=== PATIENT | male | born 1940 | race Caucasian/White ===

== ENCOUNTER 2016-07-18 09:23 | Day surgery (SDC) | payer OTHER ==
[2016-07-17 14:58] VITALS: BMI 35.3
[2016-07-18 12:11] VITALS: TEMP 97.5
[2016-07-18 13:40] VITALS: BP 141/78; PULSE 78
--- NOTE | 2016-07-21 11:39 | PATH ---
Surgical Pathology Report Patient Name: PORTIA AMATO [facility]. Rec. #: [id number] /Age/Gender: 1940 (Age: 76) / M Account: [id number] Location: ASU-ENDOSCOPY Taken: 07/18/2016 Received: 07/18/2016 Reported: 07/21/2016 Physicians: Darren Gary M.D. Specimen(s) Received A: BX ASCENDING COLON POLYP B: BX CECUM C: BX LT COLON ANASTOMOSIS Clinical History Colon cancer surveillance AVMs, polyp, patent status post surgical anastomosis, diverticulosis Final Diagnosis A. COLON, ASCENDING, BIOPSY: TUBULAR ADENOMA. B. COLON, CECUM, BIOPSY: COLONIC MUCOSA WITH SUBMUCOSAL ADIPOSE TISSUE CONSISTENT WITH LIPOMA. C. LEFT COLON ANASTOMOSIS, BIOPSY: COLONIC MUCOSA WITH NO PATHOLOGIC CHANGES. Electronically Signed Julian Barrow M.D. Gross Description A. Received in formalin, labeled "biopsy ascending colon polyp" are 2 west, irregular portions of soft tissue measuring 0.1 and 0.3 cm. in greatest dimension. The specimens are submitted in toto in one cassette. B. Received in formalin, labeled "biopsy cecum" are 2 west, irregular portions of soft tissue averaging 0.2 cm. in greatest dimension. The specimens are submitted in toto in one cassette. C. Received in formalin, labeled "biopsy left colon anastomosis" are 3 west, irregular portions of soft tissue averaging 0.4 cm. in greatest dimension. The specimens are submitted in toto in one cassette. 07/18/2016 saudi07/18/2016
== END 2016-07-18 13:41 | disposition home or self-care (01) ==
LOC: JASU-ENDO 09:23
PROVIDERS: ATTEND Internal Medicine Gastroenterology
PROC: 0DBC8ZX Excision of Ileocecal Valve, Via Natural or Artificial Opening Endoscopic, Diagnostic (ICD-10-PCS; 2016-07-18)
PROC: 0DBH8ZX Excision of Cecum, Via Natural or Artificial Opening Endoscopic, Diagnostic (ICD-10-PCS; 2016-07-18)
PROC: 0DBK8ZX Excision of Ascending Colon, Via Natural or Artificial Opening Endoscopic, Diagnostic (ICD-10-PCS; principal; 2016-07-18 10:30)
DX: Z12.11 Encounter for screening for malignant neoplasm of colon (principal); Z85.038 Personal history of other malignant neoplasm of large intestine; K57.30 Diverticulosis of large intestine without perforation or abscess without bleeding; K64.8 Other hemorrhoids; Z98.0 Intestinal bypass and anastomosis status; D12.2 Benign neoplasm of ascending colon; D12.0 Benign neoplasm of cecum; K63.5 Polyp of colon
CPT/HCPCS: 88305-TC

== ENCOUNTER 2017-07-13 06:23 | Day surgery (SDC) | payer OTHER | END 2017-07-13 16:45 | disposition home or self-care (01) | LOC: JASU-SURG 06:23 | PROC: 0TCB8ZZ Extirpation of Matter from Bladder, Via Natural or Artificial Opening Endoscopic (ICD-10-PCS; principal; 2017-07-13) | CPT/HCPCS: 36415; 82360; 82962; 88300-TC; 94760 ==

== ENCOUNTER 2017-08-10 07:05 | Day surgery (SDC) | payer OTHER ==
[2017-08-06 13:52] VITALS: BMI 31.1
[2017-08-10] MEDS ORDERED: LIDOCAINE HCL 2% JELLY 10 ML CARTRIDGE ONE (09:50)
[2017-08-10] MEDS ORDERED: MIDAZOLAM HCL 2 MG/2 ML SINGLE DOSE VIAL ONE (09:52)
[2017-08-10] MEDS ORDERED: PROPOFOL 20 ML ONE (09:52)
[2017-08-10] MEDS ORDERED: ePHEDrine SULFATE 50 MG/1 ML AMPULE ONE (10:28)
[2017-08-10] MEDS ORDERED: DEXAMETHASONE SOD PHOSPHATE 4 MG/1 ML VIAL ONE (10:50)
[2017-08-10] MEDS ORDERED: LIDOCAINE HCL 2% JELLY 10 ML CARTRIDGE TP ONE (10:50)
[2017-08-10] MEDS ORDERED: ONDANSETRON 4 MG/2 ML VIAL IVPUSH PRN (11:10)
[2017-08-10] MEDS ORDERED: ACETAMINOPHEN 1000 MG/100 ML VIAL (NON FORMULARY) IVPB ONE (11:10)
[2017-08-10] MEDS ORDERED: LACTATED RINGERS SOLUTION 1,000 ML IV SCH (11:15)
--- NOTE | 2017-08-10 12:30 | OP ---
Operative Note - Note: Operative Date: 08/10/17 Pre-Operative Diagnosis: gross hematuria, chronic renal insufficiency,bph Operation: cystoscopy/bilateral retrograde pyelogram/right ureteroscopy Findings: mild right hydronephrosis with severe medial deviation of right ureter Post-Operative Diagnosis: Other (medial deviation of right ureter with mild right hydronephrosis) Surgeon: Anjel Khan Anesthesia: General
[2017-08-10 16:31] VITALS: BP 145/77; PULSE 66; TEMP 98.3
--- NOTE | 2017-08-10 19:49 | OP ---
DATE OF OPERATION: 08/10/2017 PREOPERATIVE DIAGNOSIS: Gross hematuria, chronic renal insufficiency, and benign prostatic hypertrophy. POSTOPERATIVE DIAGNOSIS: Mild right hydronephrosis with severe medial deviation of right ureter. ATTENDING SURGEON: Marine Khan M.D. ANESTHESIA: General. PROCEDURE: Cystoscopy, bilateral retrograde pyelogram, and right ureteroscopy. DESCRIPTION OF PROCEDURE: The patient was brought in the operating room, placed in supine position on operating table. The patient has history of gross hematuria and chronic renal insufficiency and could not have an IV contrast enhanced CAT scan performed. The patient is status post lithotripsy of bladder stones. Patient is currently on Flomax for benign prostatic hypertrophy. The patient is brought into the operating room in order to assess his kidneys with a contrast study involving his ureters and renal pelvises. The patient understands all risks and benefits. The patient is brought in the operating room and placed in supine position on the operating room table. General anesthesia and preoperative antibiotics are administered. At this point, the patient is placed in a dorsal lithotomy position and prepped and draped in the usual sterile manner. Cystoscopy was performed, and a 3+ obstructive prostate is noted. 3+ bladder trabeculation with multiple and diverticula are noted. There is difficulty in identifying the ureteral orifices. With moderate difficulty, the left ureteral orifice was identified. There was J-hooking of the ureters on both sides. The left ureteral orifice was able to be intubated, and the open-ended catheter passed proximally. A retrograde pyelogram showed no evidence of hydroureteronephrosis or masses. Attempts at passing the open ended catheter into the right side were unsuccessful. Ureteroscopy was performed, and a wire was passed proximally. There was severe J-hooking of the right side, more so than on the left side. A wire was passed, and an open-ended catheter was then placed over the wire. A retrograde pyelogram showed severe medial deviation of the ureter going into, pushing into the area overlying the spine. There was continued deviation of the ureter until 4 cm below the ureteropelvic junction. There was a mild hydroureteronephrosis. There was adequate emptying of the collecting system. It was decided not to leave the stent in the patient. The case will be discussed with radiology in order to assess how to further follow up the mass effect that was causing the deviation of the ureter medially. Patient tolerated procedure very well. No complications were noted. There were also no masses noted on the distal ureteroscopy. DISPOSITION: The patient was to recovery room. MARINE ZEPEDA M.D. [id number]
[2017-09-03] MEDS ORDERED: CASPOFUNGIN ACETATE 70 MG in SODIUM CHLORIDE 250 ML IVPB ONE (13:00)
[2017-09-03] MEDS ORDERED: PIPERACILLIN/TAZOB 2.25 GM 2.25 GM in DEXTROSE 5%-WATER - 50 ML IVPB SCH (22:00)
[2017-09-04] MEDS ORDERED: CASPOFUNGIN ACETATE 50 MG in SODIUM CHLORIDE 250 ML IVPB SCH (10:15)
== END 2017-08-10 16:31 | disposition home or self-care (01) ==
LOC: JASU-SURG 07:05
PROVIDERS: ATTEND Urology
PROC: BT1DYZZ Fluoroscopy of Right Kidney, Ureter and Bladder using Other Contrast (ICD-10-PCS; principal; 2017-08-10 09:00)
PROC: 0TJ98ZZ Inspection of Ureter, Via Natural or Artificial Opening Endoscopic (ICD-10-PCS; 2017-08-10 09:00)
DX: I12.9 Hypertensive chronic kidney disease with stage 1 through stage 4 chronic kidney disease, or unspecified chronic kidney disease (principal); N40.0 Benign prostatic hyperplasia without lower urinary tract symptoms; N18.9 Chronic kidney disease, unspecified; N13.30 Unspecified hydronephrosis; Q62.61 Deviation of ureter; E11.22 Type 2 diabetes mellitus with diabetic chronic kidney disease; Z79.84 Long term (current) use of oral hypoglycemic drugs
CPT/HCPCS: 76000-TC-FY; 82962; 87086; 94760; J0131

== ENCOUNTER 2018-04-02 18:08 | Inpatient (IN) | payer OTHER ==
--- NOTE | 2018-04-02 18:14 | PDOC ---
Rapid Medical Evaluation Time Seen by Provider: 04/02/18 18:10 Medical Evaluation: Allergies Allergy/AdvReac Type Severity Reaction Status Date / Time No Known Allergies Allergy Verified 08/10/17 08:14 04/02/18 18:11 Pt c/o: urinary freq, recent multi- drug resistant urine, last abx in december, sent by Dr. Adrian for eval Pt on brief exam: VSS, Pt ordered for: ua, ucx, cbc, comp, iv pt to proceed to the ED Discharge Disposition - Diagnosis Dysuria - Referrals Referrals: Aspen Adrian MD [Primary Care Provider] - - Patient Instructions - Post Discharge Activity
--- NOTE | 2018-04-02 19:31 | PDOC ---
History of Present Illness - General Chief Complaint: Pain Stated Complaint: SENT PAIN Time Seen by Provider: 04/02/18 18:10 - History of Present Illness Initial Comments: 04/02/18 20:10 The patient is a 77 year old male with a history of HTN, HLD, DM, Diverticulosis , Kidney Stones, who presents for evaluation of dysuria. The patient is accompanied by family who assist in providing the history. They note that the patient has been experiencing worsening burning with urination with associated increased urinary frequency over the past 1-2 weeks. The patient notes that he has been urinating every 30 minutes. He states that his primary care provider Dr. Adrian obtained urine which was positive for a multi-drug resistant UTI prompting his presentation to the ED for further evaluation. The patient otherwise denies fevers, chills, SOB, chest pain, back pain, nausea, vomiting, abdominal pain, or changes with bowel movements. Past History - Past Medical History Allergies/Adverse Reactions: Allergies Allergy/AdvReac Type Severity Reaction Status Date / Time No Known Allergies Allergy Verified 04/02/18 18:12 Home Medications: Ambulatory Orders Allopurinol [Zyloprim -] 100 mg PO DAILY 07/06/14 Multivitamins [Multivit ([facility] Formulary)] 1 tab PO DAILY 07/06/14 Vitamin B Complex [B Complex] 1 each PO DAILY 07/06/14 Atorvastatin Ca [Lipitor] 10 mg PO HS 07/10/17 Tamsulosin HCl 0.8 mg PO DAILY 07/10/17 Lactobacillus Acidophilus [Bacid -] 1 tab PO DAILY tab 09/08/17 Sitagliptin Phosphate [Januvia -] 25 mg PO DAILY@0700 tab 09/08/17 Aspirin 81 mg PO DAILY 04/02/18 Cholecalciferol (Vitamin D3) [Vitamin D3 -] 1,000 unit PO DAILY 04/02/18 Anemia: No Asthma: No 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) Cardiac Disorders: No CVA: No COPD: No CHF: No Dementia: No Diabetes: Yes (NIDDM) GI Disorders: Yes (DIVERTICULOSIS, COLON POLYPS) Disorders: Yes (KIDNEY STONES) HTN: Yes Hypercholesterolemia: Yes (pt denies) Liver Disease: Yes (NAFLD-pt denies) Seizures: No Thyroid Disease: No - Surgical History Abdominal Surgery: Yes (LEFT HEMICOLECTOMY W/TEMP LOOP ILEOSTOMY 2011) Appendectomy: No Cardiac Surgery: (BILAT IRIDECTOMIES) Cholecystectomy: No Lung Surgery: No Neurologic Surgery: No Orthopedic Surgery: No - Immunization History Td Vaccination: No TDAP Vaccination: No Immunization Up to Date: No - Suicide/Smoking/Psychosocial Hx Smoking Status: No Smoking History: Unknown if ever smoked Have you smoked in the past 12 months: No Number of Cigarettes Smoked Daily: 0 If you are a former smoker, when did you quit?: About 50 years ago Hx Alcohol Use: No (RARELY) Drug/Substance Use Hx: No Substance Use Type: Alcohol Hx Substance Use Treatment: No Review of Systems - Review of Systems Comments:: 04/02/18 20:13 Constitutional: No fevers, chills, fatigue, malaise HEENT: No Rhinorrhea, nasal congestion, visual changes Cardiovascular: No chest pain, syncope, palpitations, lightheadedness Respiratory: No Cough, SOB, Hemoptysis, Gastrointestinal: No Abdominal pain, Nausea, Vomiting, Constipation, Diarrhea, Melena Genitourinary: Dysuria, Increased Frequency, Increased Urgency, No Hesitancy, Hematuria, Flank pain Musculoskeletal: No Myalgia, arthralgia Skin: No rashes, itching, bruising, pallor Neurologic: No Headache, Dizziness, Numbness, Weakness, or Tingling Psychiatric: No Hallucinations. No SI or HI *Physical Exam - Vital Signs Last Vital Signs Temp Pulse Resp BP Pulse Ox 98.3 F 98 H 18 117/67 99 04/02/18 18:19 04/02/18 18:19 04/02/18 18:19 04/02/18 18:19 04/02/18 18:19 - Physical Exam Comments: 04/02/18 20:14 General Appearance: Nourished. No Apparent Distress HEENT: No Pharyngeal Erythema, Tonsillar Exudate, Tonsillar Erythema Neck: No Cervical Lymphadenopathy Respiratory/Chest: Lungs Clear, Normal Breath Sounds. No Crackles, Rales, Rhonchi, Wheezing Cardiovascular: Regular Rhythm, Regular Rate. No Murmur, Gallops, Rubs Gastrointestinal/Abdominal: Normal Bowel Sounds, Soft. No Guarding, Rebound, Tenderness Musculoskeletal: No CVA Tenderness Extremity: Normal Capillary Refill Integumentary: Normal Color, Dry, Warm Neurologic: Fully Oriented, Alert, Normal Mood/Affect, Normal Response, Moderate Sedation - Procedure Monitoring Vital Signs: Procedure Monitoring Vital Signs Temperature 98.3 F 04/02/18 18:19 Pulse Rate 98 H 04/02/18 18:19 Respiratory Rate 18 04/02/18 18:19 Blood Pressure 117/67 04/02/18 18:19 O2 Sat by Pulse Oximetry (%) 99 04/02/18 18:19 ED Treatment Course - LABORATORY CBC & Chemistry Diagram: 04/02/18 19:53 04/02/18 19:53 Medical Decision Making - Medical Decision Making 04/02/18 20:14 The patient is a 77 year old male with a history of HTN, HLD, DM, Diverticulosis , Kidney Stones, who presents for evaluation of dysuria. Given the patient's history and physical exam, it is likely the patient's symptoms are due to a UTI. However, we will obtain a cbc, cmp, ua, urine culture, ekg to evaluate further. We will continue to monitor and reassess while here in the ED. 04/02/18 21:38 CBC, cmp are unchanged. UA demonstrate positive leuk esterase with 6000s WBC consistent with a UTI. The patient will require admission for further management. We attempted to obtain culture results from the patient's primary care provider's office, however the office is closed and unable to send culture results at this time. We discussed the case with the hospitalist team who accepted the patient for admission. We will treat in the meantime with ceftriaxone. *DC/Admit/Observation/Transfer Diagnosis at time of Disposition: Dysuria UTI (urinary tract infection) Qualifiers: Urinary tract infection type: site unspecified Hematuria presence: without hematuria Qualified Code(s): N39.0 - Urinary tract infection, site not specified - Discharge Dispostion Condition at time of disposition: Stable Decision to Admit order: Yes - Referrals Referrals: Aspen Adrian MD [Primary Care Provider] - - Patient Instructions - Post Discharge Activity
--- NOTE | 2018-04-02 19:50 | PDOC ---
Attending Attestation - HPI HPI: 04/02/18 19:55 The patient is a 77 year old male, with a significant PMH of hypertension, hyperlipidemia, DM, diverticulosis, kidney stones, who presents to the emergency department with 1 week of worsening dysuria and urinary frequency. The patient states he has been urinating once every half hour and endorses worsening pain upon urination The patient denies any hematuria. Denies any recent flank pain. Denies any recent fevers or chills. The patient denies chest pain, shortness of breath, headache and dizziness. Denies fever, chills, nausea, vomit, diarrhea and constipation. Allergies: NKA PCP: Dr Adrian Documentation prepared by Jarrell Foster, acting as clinical medical assistant for Angela Rondon MD. - Physicial Exam PE: 04/02/18 20:17 GENERAL: Awake, alert, and fully oriented, in no acute distress HEAD: No signs of trauma EYES: PERRLA, EOMI, sclera anicteric, conjunctiva clear ENT: Auricles normal inspection, hearing grossly normal, nares patent, oropharynx clear without exudates. Moist mucosa NECK: Normal ROM, supple, no lymphadenopathy, JVD, or masses LUNGS: Breath sounds equal, clear to auscultation bilaterally. No wheezes, and no crackles HEART: Regular rate and rhythm, normal S1 and S2, no murmurs, rubs or gallops ABDOMEN: Soft, nontender, normoactive bowel sounds. No guarding, no rebound. No masses EXTREMITIES: Normal range of motion, no edema. No clubbing or cyanosis. No cords, erythema, or tenderness NEUROLOGICAL: Cranial nerves II through XII grossly intact. Normal speech. SKIN: Warm, Dry, normal turgor, no rashes or lesions noted. <Jarrell Foster - Last Filed: 04/02/18 20:17> - Resident Resident Name: Carl Villafuerte - ED Attending Attestation I have performed the following: I have examined & evaluated the patient, The case was reviewed & discussed with the resident, I agree w/resident's findings & plan - Medical Decision Making 04/04/18 06:00 Pt was sent by his PMD for worsening UTI/prostatitis/dysuria. He will be admitted for IV abx and for urology consults. <Angela Rondon - Last Filed: 04/04/18 06:01>
[2018-04-02 20:13] LABS: BASO % 0.6 % (0-2.0); EOS % 3.3 % (0-4.5); HEMATOCRIT 33.7 % (35.4-49); HEMOGLOBIN 11.7 GM/dL (11.7-16.9); LYMPH % 22.1 % (8-40); MCH 31.3 pg (25.7-33.7); MCHC 34.8 g/dl (32.0-35.9); MEAN CELL VOLUME 89.9 fl (80-96); MEAN PLT VOLUME 7.3 fl (7.5-11.1); MONO % 9.2 % (3.8-10.2); NEUT % 64.8 % (42.8-82.8); PLATELET COUNT 231 K/MM3 (134-434); RBC 3.75 M/mm3 (4.00-5.60); WHITE BLOOD COUNT 6.6 K/mm3 (4.0-10.0)
[2018-04-02 20:26] LABS: URINE APPEARANCE TURBID; URINE BILIRUBIN NEGATIVE (<2.0 mg/dL); URINE COLOR YELLOW; URINE GLUCOSE (UA) 3+ (NEGATIVE); URINE KETONE NEGATIVE (NEGATIVE); URINE LEUK ESTERASE 2+ (NEGATIVE); URINE NITRITE NEGATIVE (NEGATIVE); URINE PROTEIN 2+ (NEGATIVE); URINE UROBILINOGEN NEGATIVE mg/dL (0.2-1.0)
[2018-04-02 20:37] LABS: ALBUMIN 3.3 g/dl (3.4-5.0); ALK PHOS 106 U/L (45-117); ANION GAP 5 MMOL/L (8-16); BILIRUBIN,TOTAL 0.6 mg/dL (0.2-1); BLOOD UREA NITROGEN 28 mg/dL (7-18); CALCIUM 8.4 mg/dL (8.5-10.1); CHLORIDE 107 mmol/L (98-107); CO2 26 mmol/L (21-32); GLUCOSE,RANDOM 273 mg/dL (74-106); POTASSIUM 4.4 mmol/L (3.5-5.1); SGOT/AST 16 U/L (15-37); SGPT/ALT 27 U/L (13-61); SODIUM 138 mmol/L (136-145); TOT PROT 7.2 g/dl (6.4-8.2)
[2018-04-02] MEDS ORDERED: CEFTRIAXONE 1 GM in DEXTROSE 5%-WATER - 100 ML IVPB ONE (20:38)
[2018-04-02] MEDS ORDERED: SODIUM CHLORIDE 500 ML IV STA (20:57)
[2018-04-02] MEDS ORDERED: CEFTRIAXONE 1 GM/50 ML BAG ONE (21:13)
--- NOTE | 2018-04-02 21:23 | HP ---
CHIEF COMPLAINT: dysuria PCP: Kaylah HISTORY OF PRESENT ILLNESS: History is severely limited as patient is deaf and does not have hearing aids with him 77 year old male c/o dysuria, frequency, for about the past week. No shaking or chills. He was seen in Dr. Adrian's office on 04/02/18 and was noted to have grown MDR organism in urine culture. Unknown what organism and drug sensitivities. He was sent to ER for further management. Uncertain why on allopurinol- will confirm in AM with PCP. ER course was notable for: (1) urine culture (2) ceftriaxone (3) Recent Travel: none PAST MEDICAL HISTORY: hypertension, hyperlipidemia, DM, diverticulosis, kidney stones, PAST SURGICAL HISTORY: kidney stone removal Social History: Smoking: no Alcohol: no Drugs: no Family History: Allergies No Known Allergies Allergy (Verified 04/02/18 18:12) HOME MEDICATIONS: Home Medications Medication Instructions Recorded Allopurinol [Zyloprim -] 100 mg PO DAILY 07/06/14 Multivitamins [Multivit ([facility] 1 tab PO DAILY 07/06/14 Formulary)] Vitamin B Complex [B Complex] 1 each PO DAILY 07/06/14 Atorvastatin Ca [Lipitor] 10 mg PO HS 07/10/17 Tamsulosin HCl 0.8 mg PO DAILY 07/10/17 Lactobacillus Acidophilus [Bacid -] 1 tab PO DAILY tab 09/08/17 Sitagliptin Phosphate [Januvia -] 25 mg PO DAILY@0700 tab 09/08/17 Aspirin 81 mg PO DAILY 04/02/18 Cholecalciferol (Vitamin D3) 1,000 unit PO DAILY 04/02/18 [Vitamin D3 -] REVIEW OF SYSTEMS CONSTITUTIONAL: Absent: fever, chills, diaphoresis, generalized weakness, malaise, loss of appetite, weight change HEENT: Absent: rhinorrhea, nasal congestion, throat pain, throat swelling, difficulty swallowing, mouth swelling, ear pain, eye pain, visual changes CARDIOVASCULAR: Absent: chest pain, syncope, palpitations, irregular heart rate, lightheadedness , peripheral edema RESPIRATORY: Absent: cough, shortness of breath, dyspnea with exertion, orthopnea, wheezing, stridor, hemoptysis GASTROINTESTINAL: Absent: abdominal pain, abdominal distension, nausea, vomiting, diarrhea, constipation, melena, hematochezia GENITOURINARY: Absent: hesitancy, hematuria, flank pain, genital pain present- dysuria, frequency, urgency, MUSCULOSKELETAL: Absent: myalgia, arthralgia, joint swelling, back pain, neck pain SKIN: Absent: rash, itching, pallor HEMATOLOGIC/IMMUNOLOGIC: Absent: easy bleeding, easy bruising, lymphadenopathy, frequent infections ENDOCRINE: Absent: unexplained weight gain, unexplained weight loss, heat intolerance, cold intolerance NEUROLOGIC: Absent: headache, focal weakness or paresthesias, dizziness, unsteady gait, seizure, mental status changes, bladder or bowel incontinence PSYCHIATRIC: Absent: anxiety, depression, suicidal or homicidal ideation, hallucinations. PHYSICAL EXAMINATION Vital Signs - 24 hr 04/02/18 18:19 Temperature 98.3 F Pulse Rate 98 H Respiratory 18 Rate Blood Pressure 117/67 O2 Sat by Pulse 99 Oximetry (%) GENERAL: Awake, alert, and fully oriented, in no acute distress. HEAD: Normal with no signs of trauma. EYES: Pupils equal, round and reactive to light, extraocular movements intact, sclera anicteric, conjunctiva clear. No lid lag. EARS, NOSE, THROAT: Ears normal, nares patent, oropharynx clear without exudates. Moist mucous membranes. NECK: Normal range of motion, supple without lymphadenopathy, JVD, or masses. LUNGS: Breath sounds equal, clear to auscultation bilaterally. No wheezes, and no crackles. No accessory muscle use. HEART: Regular rate and rhythm, normal S1 and S2 without murmur, rub or gallop. ABDOMEN: +ventral hernia, no CVA tenderness MUSCULOSKELETAL: Normal range of motion at all joints. No bony deformities or tenderness. No CVA tenderness. UPPER EXTREMITIES: 2+ pulses, warm, well-perfused. No cyanosis. No clubbing. No peripheral edema. LOWER EXTREMITIES: 2+ pulses, warm, well-perfused. No calf tenderness. No peripheral edema. NEUROLOGICAL: Cranial nerves II-XII intact. Normal speech. Normal gait. PSYCHIATRIC: Cooperative. Good eye contact. Appropriate mood and affect. SKIN: Warm, dry, normal turgor, no rashes or lesions noted, normal capillary refill. Laboratory Results - last 24 hr 04/02/18 04/02/18 04/02/18 19:53 19:53 19:53 WBC 6.6 RBC 3.75 L Hgb 11.7 Hct 33.7 L D MCV 89.9 MCH 31.3 MCHC 34.8 RDW 15.0 Plt Count 231 D MPV 7.3 L Absolute Neuts (auto) 4.3 Neutrophils % 64.8 Lymphocytes % 22.1 D Monocytes % 9.2 Eosinophils % 3.3 D Basophils % 0.6 Nucleated RBC % 0 Sodium 138 Potassium 4.4 Chloride 107 Carbon Dioxide 26 Anion Gap 5 L BUN 28 H Creatinine 2.0 H Creat Clearance w eGFR 32.48 Random Glucose 273 H Calcium 8.4 L Total Bilirubin 0.6 AST 16 ALT 27 Alkaline Phosphatase 106 Total Protein 7.2 Albumin 3.3 L Urine Color Yellow Urine Appearance Turbid Urine pH 5.0 Ur Specific [place] 1.011 Urine Protein 2+ H Urine Glucose (UA) 3+ H Urine Ketones Negative Urine Blood 1+ H Urine Nitrite Negative Urine Bilirubin Negative Urine Urobilinogen Negative Ur Leukocyte Esterase 2+ H Urine WBC (Auto) 6495 Urine RBC (Auto) 31 ASSESSMENT/PLAN: #77yo man with UTI with possible prostatitis with reported MDR organism however report is not available at this time. -obtain urine culture data, drug sensitivities from PCP in am -urine culture here -ceftriaxone 1g IV q24hrs -ID consult -will adjust antibiotics according to outpatient urine culture report #CKD vs JOHANNA -i/o -daily weights -trend Cr, BUN -avoid nephrotoxins -renal, prostate U/S #BPH? -c/w tamsulosin home dose #DM - uncontrolled -a1c -novolog sliding scale -diabetic diet #DLP -c/w atorvastatin #DVT ppx -heparin sc Visit type - Emergency Visit Emergency Visit: Yes ED Registration Date: 04/02/18 Care time: The patient presented to the Emergency Department on the above date and was hospitalized for further evaluation of their emergent condition. - New Patient This patient is new to me today: Yes Date on this admission: 04/03/18 - Critical Care Critical Care patient: No
[2018-04-02] MEDS: SODIUM CHLORIDE 1,000 ML IV SCH (21:49)
[2018-04-02] MEDS: HEPARIN NA (PORCINE) 5,000 UNITS/ML 1ML VIAL SQ SCH (22:35)
[2018-04-03] MEDS ORDERED: ATORVASTATIN CA 10 MG TABLET (FP) ONE (01:13)
[2018-04-03] MEDS ORDERED: HEPARIN NA (PORCINE) 5,000 UNITS/ML 1ML VIAL ONE (01:13)
[2018-04-03] MEDS: ATORVASTATIN CA 10 MG TABLET (FP) PO SCH ×2 (01:32→21:22)
[2018-04-03] MEDS: INSULIN SLIDING SCALE (NOVOLOG) 1 VIAL SQ SCH ×6 (01:32→21:21)
[2018-04-03 07:19] LABS: BASO % 0.5 % (0-2.0); EOS % 3.5 % (0-4.5); HEMATOCRIT 32.8 % (35.4-49); HEMOGLOBIN 10.6 GM/dL (11.7-16.9); LYMPH % 25.2 % (8-40); MCH 29.4 pg (25.7-33.7); MCHC 32.4 g/dl (32.0-35.9); MEAN CELL VOLUME 90.8 fl (80-96); MEAN PLT VOLUME 7.5 fl (7.5-11.1); MONO % 9.3 % (3.8-10.2); NEUT % 61.5 % (42.8-82.8); PLATELET COUNT 194 K/MM3 (134-434); RBC 3.61 M/mm3 (4.00-5.60); RDW 15.1 % (11.9-15.9); WHITE BLOOD COUNT 6.2 K/mm3 (4.0-10.0)
[2018-04-03 07:44] LABS: ANION GAP 6 MMOL/L (8-16); BLOOD UREA NITROGEN 23 mg/dL (7-18); CALCIUM 8.4 mg/dL (8.5-10.1); CHLORIDE 109 mmol/L (98-107); CO2 23 mmol/L (21-32); CREATININE 1.6 mg/dL (0.55-1.3); GLUCOSE,RANDOM 167 mg/dL (74-106); POTASSIUM 4.1 mmol/L (3.5-5.1); SODIUM 138 mmol/L (136-145)
--- NOTE | 2018-04-03 08:38 | EKG ---
Test Reason : Blood Pressure : / mmHG Vent. Rate : 090 BPM Atrial Rate : 090 BPM P-R Int : 162 ms QRS Dur : 140 ms QT Int : 398 ms P-R-T Axes : 030 -54 -17 degrees QTc Int : 486 ms NORMAL SINUS RHYTHM RIGHT BUNDLE BRANCH BLOCK LEFT ANTERIOR FASCICULAR BLOCK BIFASCICULAR BLOCK ABNORMAL ECG WHEN COMPARED WITH ECG OF 04-SEP-2017 12:24, SIGNIFICANT CHANGES HAVE OCCURRED Confirmed by LEONILA WHITE MD ([id number]) on 04/03/2018 8:37:42 AM Referred By: Confirmed By:LEONILA WHITE MD
[2018-04-03] MEDS: TAMSULOSIN HCL 0.4 MG CAP PO SCH (10:27)
[2018-04-03] MEDS: ASPIRIN 81 MG CHEWABLE TABLETS PO SCH (10:28)
[2018-04-03] MEDS: MULTIVITAMINS (DAILY MVI) TABLET (FP) PO SCH (10:28)
[2018-04-03] MEDS: CHOLECALCIFEROL (VITAMIN D3) 400 UNIT TABLET (FP) PO SCH (10:28)
[2018-04-03] MEDS: LACTOBACILLUS ACIDOPHILUS 1 TABLET PO SCH (10:28)
[2018-04-03] MEDS: ALLOPURINOL 100 MG TABLET (FP) PO SCH (10:29)
[2018-04-03] MEDS: HEPARIN NA (PORCINE) 5,000 UNITS/ML 1ML VIAL SQ SCH ×2 (10:30→21:22)
--- NOTE | 2018-04-03 13:08 | PN ---
Progress Note, Physician - Current Medication List Current Medications: Active Medications Allopurinol (Zyloprim -) 100 mg PO DAILY [facility] Last Admin: 04/03/18 10:29 Dose: 100 mg Aspirin (Asa -) 81 mg PO DAILY [facility] Last Admin: 04/03/18 10:28 Dose: 81 mg Atorvastatin Calcium (Lipitor -) 10 mg PO HS [facility] Last Admin: 04/03/18 01:32 Dose: 10 mg Cholecalciferol (Vitamin D3 -) 1,000 unit PO DAILY [facility] Last Admin: 04/03/18 10:28 Dose: 1,000 unit Heparin Sodium (Porcine) (Heparin -) 5,000 unit SQ BID [facility] Last Admin: 04/03/18 10:30 Dose: 5,000 unit Sodium Chloride (Normal Saline -) 1,000 mls @ 50 mls/hr IV ASDIR [facility] Stop: 04/03/18 21:33 Last Admin: 04/02/18 21:49 Dose: 50 mls/hr Insulin Aspart (Novolog Vial Sliding Scale -) 1 vial SQ ACHS [facility]; Protocol Lactobacillus Acidophilus (Bacid -) 1 tab PO DAILY [facility] Last Admin: 04/03/18 10:28 Dose: 1 tab Multivitamins/Minerals/Vitamin C (Tab-A-Vit -) 1 tab PO DAILY [facility] Last Admin: 04/03/18 10:28 Dose: 1 tab Tamsulosin HCl (Flomax -) 0.8 mg PO DAILY@0830 [facility] Last Admin: 04/03/18 10:27 Dose: 0.8 mg - Objective Vital Signs: Vital Signs Temperature 98.4 F 04/03/18 10:10 Pulse Rate 89 04/03/18 10:10 Respiratory Rate 18 04/03/18 10:10 Blood Pressure 123/73 04/03/18 10:10 O2 Sat by Pulse Oximetry (%) 98 04/03/18 10:10 Cardiovascular: Yes: Regular Rate and Rhythm Respiratory: Yes: Regular, CTA Bilaterally Gastrointestinal: Yes: Normal Bowel Sounds, Soft, Other (abd wall hernia) Labs: CBC, BMP 04/03/18 07:09 04/03/18 07:09 Problem List - Problems (1) UTI (urinary tract infection) Assessment/Plan: -office ua positive blood and wbc-bact--uc mutiple organisms -obtain-urine culture here -ceftriaxone 1g IV q24hrs -ID consult -will adjust antibiotics according to outpatient urine culture report Code(s): N39.0 - URINARY TRACT INFECTION, SITE NOT SPECIFIED Qualifiers: Urinary tract infection type: site unspecified Hematuria presence: without hematuria Qualified Code(s): N39.0 - Urinary tract infection, site not specified (2) CKD (chronic kidney disease) Assessment/Plan: -i/o -daily weights -trend Cr, BUN -avoid nephrotoxins -renal, prostate U/S -Renal consult Code(s): N18.9 - CHRONIC KIDNEY DISEASE, UNSPECIFIED (3) Anemia Assessment/Plan: -Monitor Code(s): D64.9 - ANEMIA, UNSPECIFIED (4) BPH (benign prostatic hyperplasia) Assessment/Plan: -Urology Consult -c/w tamsulosin home dose Code(s): N40.0 - BENIGN PROSTATIC HYPERPLASIA WITHOUT LOWER URINRY TRACT SYMP
--- NOTE | 2018-04-03 15:07 | PN ---
Progress Note (short form) - Note Progress Note: ID consult dictated imp/reccd 77 yo man with pmh renal stones, history of sepsis and acute renal failure 2017 now reports intermittent dysuria and urinary retention since sees dr Sweet for urology and had recent CT scan-cystitis and bph sent to ED for recurrent UTI no fevers or chills, no flank pain, otherwise feels well unsure whether he has been on antibiotics recently ua with pyuria, cultures are pending awaiting urology evaluation can continue ceftriaxone for now, will follow d/w daughter, , and patient Problem List - Problems (1) UTI (urinary tract infection) Code(s): N39.0 - URINARY TRACT INFECTION, SITE NOT SPECIFIED Qualifiers: Urinary tract infection type: site unspecified Hematuria presence: without hematuria Qualified Code(s): N39.0 - Urinary tract infection, site not specified (2) Urinary retention Code(s): R33.9 - RETENTION OF URINE, UNSPECIFIED
[2018-04-03] MEDS ORDERED: cefTRIAXone SODIUM 1 GM VIAL ONE (15:46)
[2018-04-03] MEDS ORDERED: DEXTROSE 5%-WATER - 50 ML IVPB ONE (15:46)
[2018-04-03] MEDS: CEFTRIAXONE 1 GM in DEXTROSE 5%-WATER - 50 ML IVPB SCH (17:13)
--- NOTE | 2018-04-03 19:04 | CONS ---
DATE OF CONSULTATION: DATE OF DICTATION: 04/03/2018 REQUESTING PHYSICIAN: Aspen Adrian MD HISTORY: This is a 77-year-old man who had a stormy admission in August of this year when he was admitted for sepsis. He was in acute renal failure and had recently had a procedure at that time. After discharge from the hospital, the family reports that he continued to have urinary symptoms. He has continued to have difficulty urinating. He feels like his entire bladder will not empty. He has to push the urine out. He needs to urinate every 1/2 hour. He has had no further fever or chills. He has, otherwise, been stable. He is now seeing Dr. Ella Sweet as an outpatient. He reports having had a CAT scan recently. He was sent from home apparently because he had a urine culture with multidrug-resistant organisms, and he was sent to the emergency room. PAST MEDICAL HISTORY: Notable for hypertension, hyperlipidemia, diabetes, diverticulosis, and kidney stones. PAST SURGICAL HISTORY: He has had kidney stones removed. As well he had colon cancer in the past and underwent colon resection. He has also had cystoscopy in the past for BPH and bladder stones. He has had retrograde pyelograms in the past. ALLERGIES: He has no known drug allergies. MEDICATIONS: He is unsure if he has recently been on antibiotics. Both his and daughter are present. They are not sure as well. His medications at home include B complex, tamsulosin, Januvia, multivitamin, Bacid, vitamin D, atorvastatin, aspirin, allopurinol. SOCIAL HISTORY: He is . He lives at home with his family. There is no history of any cigarette or substance use. He is hard of hearing. REVIEW OF SYSTEMS: He denies fever or chills. He has no diarrhea or dysuria. His main complaints are related to his frequent urination. At night he states he is often incontinent. PHYSICAL EXAMINATION: General: He is awake and alert. Vital Signs: Temperature 97.3, pulse 88, blood pressure 138/70, respiratory rate 18, weight 99 kg. He is saturating 96% on room air. HEENT: He is normocephalic. His eyes are anicteric. Neck: Supple. Lungs: Clear to auscultation. Heart: Regular rate and rhythm. Abdomen: Soft. He has a large, soft hernia on the right side of his abdomen. The daughter states that is the site of his prior colon resection. There is no tenderness at all. He has no suprapubic pain. He has no CVA tenderness. Extremities: Without edema. White count 6.2, hemoglobin 10.6, platelets 194. BUN 23 and creatinine 1.6, which looking from this summer his creatinine in August was 10. Continued to improve. Liver function tests are normal with an albumin of 3.3. Urine culture is pending. His UA was notable for 2+ leukocyte esterase with 6000 white cells. Looking in the computer, he had a CAT scan in February of his abdomen and pelvis, which was notable for mild hydronephrosis with moderate dilatation of both ureters down to the urinary bladder. He has a thick-walled urinary bladder with an anterior diverticulum and pericystic inflammatory changes and moderately enlarged prostate. Right lower ventral hernia, larger right inguinal hernia, and cholelithiasis. In summary, this is a 77-year-old man sent for admission for recurrent UTI. Unsure whether he has been on antibiotics recently. He has been started on ceftriaxone, which seems reasonable at this time. Per the CAT scan findings, he has evidence of cystitis and BPH. Would continue ceftriaxone and follow up on cultures. Would await Urology evaluation. The family is under the impression that he is going to have a urologic procedure this admission. The case was discussed with the daughter, , and patient. All questions were answered. CHEYANNE GOMES M.D. [id number]
[2018-04-03] MEDS: SODIUM CHLORIDE 1,000 ML IV SCH (21:25)
[2018-04-04] MEDS ORDERED: ACETAMINOPHEN 500 MG TABLET (FP) PO PRN (05:06)
[2018-04-04] MEDS: INSULIN SLIDING SCALE (NOVOLOG) 1 VIAL SQ SCH ×4 (06:30→21:38)
[2018-04-04] MEDS ORDERED: PT OWN MED DRAWER 7, Y5N ONE (09:24)
[2018-04-04] MEDS ORDERED: DEXTROSE 5%-WATER - 50 ML IVPB ONE (09:24)
[2018-04-04] MEDS ORDERED: cefTRIAXone SODIUM 1 GM VIAL ONE (09:24)
[2018-04-04] MEDS: CHOLECALCIFEROL (VITAMIN D3) 400 UNIT TABLET (FP) PO SCH (09:43)
[2018-04-04] MEDS: LACTOBACILLUS ACIDOPHILUS 1 TABLET PO SCH (09:45)
[2018-04-04] MEDS: ALLOPURINOL 100 MG TABLET (FP) PO SCH (09:45)
[2018-04-04] MEDS: ASPIRIN 81 MG CHEWABLE TABLETS PO SCH (09:45)
[2018-04-04] MEDS: TAMSULOSIN HCL 0.4 MG CAP PO SCH (09:45)
[2018-04-04] MEDS: MULTIVITAMINS (DAILY MVI) TABLET (FP) PO SCH (09:46)
[2018-04-04] MEDS: CEFTRIAXONE 1 GM in DEXTROSE 5%-WATER - 50 ML IVPB SCH (09:49)
[2018-04-04] MEDS: HEPARIN NA (PORCINE) 5,000 UNITS/ML 1ML VIAL SQ SCH ×2 (09:49→23:54)
[2018-04-04] MEDS ORDERED: MELATONIN 5 MG TABLETS PO PRN (11:43)
--- NOTE | 2018-04-04 11:43 | PN ---
Progress Note, Physician - Current Medication List Current Medications: Active Medications Acetaminophen (Tylenol -) 500 mg PO Q6H PRN PRN Reason: PAIN Last Admin: 04/04/18 05:27 Dose: 500 mg Allopurinol (Zyloprim -) 100 mg PO DAILY [facility] Last Admin: 04/04/18 09:45 Dose: 100 mg Aspirin (Asa -) 81 mg PO DAILY [facility] Last Admin: 04/04/18 09:45 Dose: 81 mg Atorvastatin Calcium (Lipitor -) 10 mg PO HS [facility] Last Admin: 04/03/18 21:22 Dose: 10 mg Cholecalciferol (Vitamin D3 -) 1,000 unit PO DAILY [facility] Last Admin: 04/04/18 09:43 Dose: 1,000 unit Heparin Sodium (Porcine) (Heparin -) 5,000 unit SQ BID [facility] Last Admin: 04/04/18 09:49 Dose: 5,000 unit Ceftriaxone Sodium 1 gm/ (Dextrose) 50 mls @ 100 mls/hr IVPB DAILY [facility]; Protocol Last Admin: 04/04/18 09:49 Dose: 100 mls/hr Insulin Aspart (Novolog Vial Sliding Scale -) 1 vial SQ ACHS [facility]; Protocol Last Admin: 04/04/18 11:35 Dose: 4 units Lactobacillus Acidophilus (Bacid -) 1 tab PO DAILY [facility] Last Admin: 04/04/18 09:45 Dose: 1 tab Multivitamins/Minerals/Vitamin C (Tab-A-Vit -) 1 tab PO DAILY [facility] Last Admin: 04/04/18 09:46 Dose: 1 tab Tamsulosin HCl (Flomax -) 0.8 mg PO DAILY@0830 [facility] Last Admin: 04/04/18 09:45 Dose: 0.8 mg - Objective Vital Signs: Vital Signs Temperature 98.4 F 04/04/18 06:14 Pulse Rate 100 H 04/04/18 09:00 Respiratory Rate 18 04/04/18 09:00 Blood Pressure 146/84 04/04/18 09:00 O2 Sat by Pulse Oximetry (%) 96 04/04/18 09:00 Cardiovascular: Yes: Regular Rate and Rhythm Respiratory: Yes: Regular, CTA Bilaterally Gastrointestinal: Yes: Normal Bowel Sounds, Soft Labs: CBC, BMP 04/03/18 07:09 04/03/18 07:09 Problem List - Problems (1) UTI (urinary tract infection) Assessment/Plan: -office ua positive blood and wbc-bact--uc mutiple organisms -obtain-urine culture here -ceftriaxone 1g IV q24hrs -ID consult -will adjust antibiotics according to outpatient urine culture report Code(s): N39.0 - URINARY TRACT INFECTION, SITE NOT SPECIFIED Qualifiers: Urinary tract infection type: site unspecified Hematuria presence: without hematuria Qualified Code(s): N39.0 - Urinary tract infection, site not specified (2) CKD (chronic kidney disease) Assessment/Plan: -i/o -daily weights -trend Cr, BUN -avoid nephrotoxins -renal, prostate U/S -Renal consult Code(s): N18.9 - CHRONIC KIDNEY DISEASE, UNSPECIFIED (3) Anemia Assessment/Plan: -Monitor Code(s): D64.9 - ANEMIA, UNSPECIFIED (4) BPH (benign prostatic hyperplasia) Assessment/Plan: -Urology Consult -c/w tamsulosin home dose Code(s): N40.0 - BENIGN PROSTATIC HYPERPLASIA WITHOUT LOWER URINRY TRACT SYMP
[2018-04-04 11:59] VITALS: BMI 28.4
--- NOTE | 2018-04-04 11:59 | CON.NEP ---
Consult Consult Specialty:: Nephrology Reason for Consultation:: mima - History of Present Illness Chief Complaint: burning, painon urination History of Present Illness: The patient is a 77 year old male, with a significant PMH of hypertension, hyperlipidemia, DM, diverticulosis, kidney stones who presented with symptoms of a UTI. He had a procedure for kidney stones in July and has had cloudy urine since then. He has multiple complaints. Says that he had an episode where he became limp and couild not move hsi arms soon after the surgery last year. Has frequency and difficulty urinating. - History Source History Provided By: Patient, Medical Record Limitations to Obtaining History: No Limitations - Past Medical History Cardio/Vascular: Yes: HTN, Hyperlipdemia Gastrointestinal: Yes: Cancer (COLON) Renal/: Yes: BPH, UTI Endocrine: Yes: Diabetes Mellitus - Alcohol/Substance Use Hx Alcohol Use: No (RARELY) - Smoking History Smoking history: Unknown if ever smoked Have you smoked in the past 12 months: No Aproximately how many cigarettes per day: 0 If you are a former smoker, when did you quit?: About 50 years ago Home Medications - Allergies Allergies/Adverse Reactions: Allergies Allergy/AdvReac Type Severity Reaction Status Date / Time No Known Allergies Allergy Verified 04/02/18 18:12 - Home Medications Home Medications: Ambulatory Orders Allopurinol [Zyloprim -] 100 mg PO DAILY 07/06/14 Multivitamins [Multivit ([facility] Formul[facility])] 1 tab PO DAILY 07/06/14 Vitamin B Complex [B Complex] 1 each PO DAILY 07/06/14 Atorvastatin Ca [Lipitor] 10 mg PO HS 07/10/17 Tamsulosin HCl 0.8 mg PO DAILY 07/10/17 Lactobacillus Acidophilus [Bacid -] 1 tab PO DAILY tab 09/08/17 Sitagliptin Phosphate [Januvia -] 25 mg PO DAILY@0700 tab 09/08/17 Aspirin 81 mg PO DAILY 04/02/18 Cholecalciferol (Vitamin D3) [Vitamin D3 -] 1,000 unit PO DAILY 04/02/18 Review of Systems - Review of Systems Constitutional: reports: Weakness Eyes: reports: No Symptoms HENT: reports: No Symptoms Neck: reports: No Symptoms Cardiovascular: reports: No Symptoms Respiratory: reports: No Symptoms Gastrointestinal: reports: Abdominal Pain Genitourinary: reports: Burning, Frequency Breasts: reports: No Symptoms Reported Musculoskeletal: reports: No Symptoms Neurological: reports: No Symptoms, Other (did have tremors acutely in the past) Endocrine: reports: No Symptoms Hematology/Lymphatic: reports: No Symptoms Psychiatric: reports: No Symptoms Nephrology Consult - Height Height: 6 ft 1 in - Weight Weight: 215 lb 12.8 oz - BMI Body Mass Index (BMI): 28.4 - Lab Results CBC,BMP: CBC, BMP 04/03/18 07:09 04/03/18 07:09 Anion Gap: Anion Gap Anion Gap 6 MMOL/L (8-16) L 04/03/18 07:09 - Imaging Ultrasound: Report Reviewed (mild bilat hydronephrosis, High PVR) - Physical Examination Vital Signs: Vital Signs Temperature 98.4 F 04/04/18 06:14 Pulse Rate 100 H 04/04/18 09:00 Respiratory Rate 18 04/04/18 09:00 Blood Pressure 146/84 04/04/18 09:00 O2 Sat by Pulse Oximetry (%) 96 04/04/18 09:00 Constitutional: Yes: Well Nourished, No Distress, Calm Eyes: Yes: Conjunctiva Clear HENT: Yes: Atraumatic, Normocephalic Neck: Yes: Supple Cardiovascular: Yes: Regular Rate and Rhythm Respiratory: Yes: Regular, CTA Bilaterally Gastrointestinal: Yes: Normal Bowel Sounds Musculoskeletal: Yes: WNL Extremities: Yes: WNL Edema: No Wound/Incision: Yes: Well Approximated Neurological: Yes: Alert, Oriented Psychiatric: Yes: Alert, Oriented Assessment/Plan IMPRESSION Acute on ckd obstructive uropathy r/o neurogenic bladder vs BPH UTI proteinuria abnormal color of urine may be chyluria or related to nephrotic syndrome PLAN continue antibiotics urology evaluation insertion of la catheter urine triglycerides continue antibiotics protein to creat MV
[2018-04-04] MEDS: ALBUTEROL SO4 2.5/IPRATROPIUM 0.5 INH SOL 3 ML VIAL.NEB. NEB SCH ×3 (12:04→20:20)
--- NOTE | 2018-04-04 13:02 | PN ---
Progress Note (short form) - Note Progress Note: UROLOGY NOTE.pt. with rec. retention and h/o prostatism.there appears to be no improvement on flomax. will rec. cysto,cmg, poss tuvp when med. ok.
[2018-04-04] MEDS: traMADol HCL 50 MG TABLET PO PRN ×2 (13:15→21:33)
--- NOTE | 2018-04-04 14:26 | CONS ---
DATE OF CONSULTATION: 04/04/2018 The patient is a 77-year-old male admitted via the emergency room with possible urosepsis. He was in acute renal failure and was recently discharged from the hospital. Family reports that the patient continues to have frequency, urgency, dysuria, and incontinence. He feels that his bladder is not emptying. Patient has to push hard and place pressure on his lower abdomen to help him evacuate his bladder. He uses the bathroom every 30 minutes. At present he denies any fever or chills. He was followed in our office and was about to undergo a prostate reduction procedure but urine cultures revealed multiple drug-resistant organisms and therefore the patient was sent to the emergency room for intravenous antibiotics. He does have history of high blood pressure, hyperlipidemia, diabetes, diverticulosis, and nephrolithiasis. Patient has had ureteroscopic laser lithotripsy in the past. He also had colon cancer, for which he underwent a hemicolectomy. A cystoscopy in the past revealed a large obstructing prostate with multiple bladder stones. The patient had cystolithotripsy and evacuation of bladder stones. He denies any drug or food allergies. The patient is , lives at home with his family. He denies any alcohol or tobacco use. He is hard of hearing. In the emergency room, the patient's blood pressure was 132/66, his temperature was 98.4. Laboratory data revealed a white count of 6.6, with a hemoglobin of 11.7, hematocrit 33.7, platelets 231. His differential was within normal limits. BUN 32, creatinine 1.6. Random glucose was 167. The patient had a urine culture and the results are pending. He also underwent a renal ultrasound yesterday and that revealed the kidneys appeared to be normal in size. There were no lesions or calculi seen. There was a diffuse thickening of the bladder wall. There was also a large postvoid residual estimated between 300 and 350 mL. The prostate measured approximately 80 g. Presently, the patient is afebrile, his abdomen is soft. There is suprapubic tenderness and fullness. A urinal is next to the patient and he states that he voids every 30 minutes. He does have dribbling, most likely overflow incontinence. His prostate is 3+, smooth, firm, and nontender. IMPRESSION AT PRESENT: Benign prostatic hypertrophy with large postvoid residual and urinary tract infection. Will recommend treating the urinary tract infection after urine culture and sensitivity results are back. Patient will need a cystoscopy with possible transurethral vaporization of the prostate. This can be done during this admission or as an outpatient. Will follow with you. ROMA GARCÍA M.D. [id number]
[2018-04-04 15:28] LABS: BASO % 0.8 % (0-2.0); EOS % 2.3 % (0-4.5); HEMATOCRIT 31.9 % (35.4-49); HEMOGLOBIN 11.2 GM/dL (11.7-16.9); LYMPH % 20.5 % (8-40); MCH 31.4 pg (25.7-33.7); MCHC 35.2 g/dl (32.0-35.9); MEAN CELL VOLUME 89.3 fl (80-96); MEAN PLT VOLUME 7.4 fl (7.5-11.1); MONO % 8.6 % (3.8-10.2); NEUT % 67.8 % (42.8-82.8); PLATELET COUNT 226 K/MM3 (134-434); RBC 3.57 M/mm3 (4.00-5.60); RDW 14.8 % (11.9-15.9); WHITE BLOOD COUNT 6.1 K/mm3 (4.0-10.0)
[2018-04-04 15:55] LABS: ALBUMIN 3.1 g/dl (3.4-5.0); ALK PHOS 90 U/L (45-117); ANION GAP 9 MMOL/L (8-16); BILIRUBIN,TOTAL 0.5 mg/dL (0.2-1); BLOOD UREA NITROGEN 21 mg/dL (7-18); CALCIUM 8.5 mg/dL (8.5-10.1); CHLORIDE 106 mmol/L (98-107); CO2 23 mmol/L (21-32); CREATININE 1.3 mg/dL (0.55-1.3); GLUCOSE,RANDOM 180 mg/dL (74-106); SGOT/AST 14 U/L (15-37); SGPT/ALT 23 U/L (13-61); SODIUM 137 mmol/L (136-145)
[2018-04-04] MEDS ORDERED: INSULIN (NOVOLOG) ASPART 100 UNITS/ML 10ML VIAL ONE ×2 (16:14→21:37)
[2018-04-04] MEDS: ATORVASTATIN CA 10 MG TABLET (FP) PO SCH (21:40)
[2018-04-05] MEDS: INSULIN SLIDING SCALE (NOVOLOG) 1 VIAL SQ SCH ×4 (06:14→21:43)
[2018-04-05] MEDS ORDERED: INSULIN (NOVOLOG) ASPART 100 UNITS/ML 10ML VIAL ONE (07:01)
[2018-04-05] MEDS: ALBUTEROL SO4 2.5/IPRATROPIUM 0.5 INH SOL 3 ML VIAL.NEB. NEB SCH ×4 (07:15→19:53)
[2018-04-05 08:23] LABS: BASO % 0.6 % (0-2.0); EOS % 4.1 % (0-4.5); HEMATOCRIT 32.3 % (35.4-49); HEMOGLOBIN 10.5 GM/dL (11.7-16.9); LYMPH % 26.9 % (8-40); MCH 29.5 pg (25.7-33.7); MCHC 32.6 g/dl (32.0-35.9); MEAN CELL VOLUME 90.4 fl (80-96); MEAN PLT VOLUME 7.4 fl (7.5-11.1); MONO % 10.1 % (3.8-10.2); NEUT % 58.3 % (42.8-82.8); PLATELET COUNT 195 K/MM3 (134-434); RBC 3.57 M/mm3 (4.00-5.60); RDW 14.6 % (11.9-15.9); WHITE BLOOD COUNT 5.4 K/mm3 (4.0-10.0)
[2018-04-05 08:43] LABS: ALBUMIN 2.8 g/dl (3.4-5.0); ALK PHOS 82 U/L (45-117); ANION GAP 8 MMOL/L (8-16); BILIRUBIN,TOTAL 0.7 mg/dL (0.2-1); BLOOD UREA NITROGEN 16 mg/dL (7-18); CALCIUM 8.3 mg/dL (8.5-10.1); CHLORIDE 107 mmol/L (98-107); CO2 23 mmol/L (21-32); CREATININE 1.2 mg/dL (0.55-1.3); GLUCOSE,RANDOM 124 mg/dL (74-106); POTASSIUM 3.9 mmol/L (3.5-5.1); SGOT/AST 9 U/L (15-37); SGPT/ALT 20 U/L (13-61); SODIUM 139 mmol/L (136-145); TOT PROT 6.5 g/dl (6.4-8.2)
[2018-04-05] MEDS ORDERED: cefTRIAXone SODIUM 1 GM VIAL ONE (10:12)
[2018-04-05] MEDS ORDERED: DEXTROSE 5%-WATER - 50 ML IVPB ONE (10:12)
[2018-04-05] MEDS: CEFTRIAXONE 1 GM in DEXTROSE 5%-WATER - 50 ML IVPB SCH (10:23)
--- NOTE | 2018-04-05 13:27 | PN ---
Progress Note (short form) - Note Progress Note: UROLOGY NOTE. pt. with large post-void residuel, la-patent, urine-clear, abd. soft, n/t pt. is on max. dose of flomax. will give tov in am.
--- NOTE | 2018-04-05 14:02 | PN ---
Progress Note (short form) - Note Progress Note: la placed yesterday for urinary retention now with cloudy cream colored urine! urology is planning cyto/tuvp Vital Signs Period Temp Pulse Resp BP Sys/Marte Pulse Ox Last 24 Hr 97.3 F-98.0 F 84-104 18-18 120-136/55-80 96 cor-rrr lungs clear abd soft,nt ext no edema la with cloudy urine CBC, BMP 04/05/18 06:00 04/05/18 06:00 Microbiology 04/02/18 19:53 Urine - Urine Clean Catch Urine Culture - Final Yeast Like Organism a/p urinary retention/BPH rpeat ua and urine culture now ua with pyuria, cultures with yeast urology evaluation noted can continue ceftriaxone for now, add diflucan Problem List - Problems (1) UTI (urinary tract infection) Code(s): N39.0 - URINARY TRACT INFECTION, SITE NOT SPECIFIED Qualifiers: Urinary tract infection type: site unspecified Hematuria presence: without hematuria Qualified Code(s): N39.0 - Urinary tract infection, site not specified (2) Urinary retention Code(s): R33.9 - RETENTION OF URINE, UNSPECIFIED
[2018-04-05] MEDS: ASPIRIN 81 MG CHEWABLE TABLETS PO SCH (14:28)
[2018-04-05] MEDS: CHOLECALCIFEROL (VITAMIN D3) 400 UNIT TABLET (FP) PO SCH (14:28)
[2018-04-05] MEDS: TAMSULOSIN HCL 0.4 MG CAP PO SCH (14:29)
[2018-04-05] MEDS: LACTOBACILLUS ACIDOPHILUS 1 TABLET PO SCH (14:29)
[2018-04-05] MEDS: ALLOPURINOL 100 MG TABLET (FP) PO SCH (14:30)
[2018-04-05] MEDS: MULTIVITAMINS (DAILY MVI) TABLET (FP) PO SCH (14:30)
[2018-04-05] MEDS: HEPARIN NA (PORCINE) 5,000 UNITS/ML 1ML VIAL SQ SCH ×2 (14:30→21:41)
--- NOTE | 2018-04-05 15:00 | PN ---
Progress Note, Physician Chief Complaint: patient seen and examiend going for stress test tmw NPO [facility] - Current Medication List Current Medications: Active Medications Acetaminophen (Tylenol -) 500 mg PO Q6H PRN PRN Reason: PAIN Last Admin: 04/04/18 05:27 Dose: 500 mg Albuterol/Ipratropium (Duoneb -) 1 amp NEB RQID [facility] Last Admin: 04/05/18 11:56 Dose: Not Given Allopurinol (Zyloprim -) 100 mg PO DAILY [facility] Last Admin: 04/05/18 14:30 Dose: 100 mg Aspirin (Asa -) 81 mg PO DAILY [facility] Last Admin: 04/05/18 14:28 Dose: 81 mg Atorvastatin Calcium (Lipitor -) 10 mg PO HS [facility] Last Admin: 04/04/18 21:40 Dose: 10 mg Cholecalciferol (Vitamin D3 -) 1,000 unit PO DAILY [facility] Last Admin: 04/05/18 14:28 Dose: 1,000 unit Fluconazole (Diflucan -) 200 mg PO DAILY [facility] Heparin Sodium (Porcine) (Heparin -) 5,000 unit SQ BID [facility] Last Admin: 04/05/18 14:30 Dose: Not Given Ceftriaxone Sodium 1 gm/ (Dextrose) 50 mls @ 100 mls/hr IVPB DAILY [facility]; Protocol Last Admin: 04/05/18 10:23 Dose: 100 mls/hr Insulin Aspart (Novolog Vial Sliding Scale -) 1 vial SQ ACHS [facility]; Protocol Last Admin: 04/05/18 14:30 Dose: Not Given Lactobacillus Acidophilus (Bacid -) 1 tab PO DAILY [facility] Last Admin: 04/05/18 14:29 Dose: 1 tab Melatonin (Melatonin) 5 mg PO HS PRN PRN Reason: INSOMNIA Last Admin: 04/04/18 21:33 Dose: 5 mg Multivitamins/Minerals/Vitamin C (Tab-A-Vit -) 1 tab PO DAILY [facility] Last Admin: 04/05/18 14:30 Dose: 1 tab Tamsulosin HCl (Flomax -) 0.8 mg PO DAILY@0830 [facility] Last Admin: 04/05/18 14:29 Dose: 0.8 mg Tramadol HCl (Ultram -) 50 mg PO Q8H PRN PRN Reason: PAIN LEVEL 4 - 6 Last Admin: 04/04/18 21:33 Dose: 50 mg - Objective Vital Signs: Vital Signs Temperature 97.3 F L 04/05/18 13:54 Pulse Rate 103 H 04/05/18 13:54 Respiratory Rate 18 04/05/18 13:54 Blood Pressure 125/80 04/05/18 13:54 O2 Sat by Pulse Oximetry (%) 96 04/04/18 21:00 Constitutional: Yes: Calm Cardiovascular: Yes: Regular Rate and Rhythm, S1, S2 Respiratory: Yes: CTA Bilaterally Gastrointestinal: Yes: Normal Bowel Sounds, Soft Edema: No Neurological: Yes: Alert Labs: CBC, BMP 04/05/18 06:00 04/05/18 06:00 Problem List - Problems (1) Urinary retention Assessment/Plan: on flomax to go for cysto and turp per urology iv abx and difulcan Microbiology 04/02/18 19:53 Urine - Urine Clean Catch Urine Culture - Final Yeast Like Organism Code(s): R33.9 - RETENTION OF URINE, UNSPECIFIED (2) BPH (benign prostatic hyperplasia) Assessment/Plan: flomax Code(s): N40.0 - BENIGN PROSTATIC HYPERPLASIA WITHOUT LOWER URINRY TRACT SYMP Assessment/Plan going for stress test tmw npo tonight
--- NOTE | 2018-04-05 17:08 | PN ---
Progress Note, Physician History of Present Illness: Pt seen and examined at bedside. He is awake and alert. He denies fevers or chills. - Current Medication List Current Medications: Active Medications Acetaminophen (Tylenol -) 500 mg PO Q6H PRN PRN Reason: PAIN Last Admin: 04/04/18 05:27 Dose: 500 mg Albuterol/Ipratropium (Duoneb -) 1 amp NEB RQID [facility] Last Admin: 04/05/18 15:45 Dose: 1 amp Allopurinol (Zyloprim -) 100 mg PO DAILY [facility] Last Admin: 04/05/18 14:30 Dose: 100 mg Aspirin (Asa -) 81 mg PO DAILY [facility] Last Admin: 04/05/18 14:28 Dose: 81 mg Atorvastatin Calcium (Lipitor -) 10 mg PO HS [facility] Last Admin: 04/04/18 21:40 Dose: 10 mg Cholecalciferol (Vitamin D3 -) 1,000 unit PO DAILY [facility] Last Admin: 04/05/18 14:28 Dose: 1,000 unit Fluconazole (Diflucan -) 200 mg PO DAILY [facility] Heparin Sodium (Porcine) (Heparin -) 5,000 unit SQ BID [facility] Last Admin: 04/05/18 14:30 Dose: Not Given Ceftriaxone Sodium 1 gm/ (Dextrose) 50 mls @ 100 mls/hr IVPB DAILY [facility]; Protocol Last Admin: 04/05/18 10:23 Dose: 100 mls/hr Insulin Aspart (Novolog Vial Sliding Scale -) 1 vial SQ ACHS [facility]; Protocol Last Admin: 04/05/18 14:30 Dose: Not Given Lactobacillus Acidophilus (Bacid -) 1 tab PO DAILY [facility] Last Admin: 04/05/18 14:29 Dose: 1 tab Melatonin (Melatonin) 5 mg PO HS PRN PRN Reason: INSOMNIA Last Admin: 04/04/18 21:33 Dose: 5 mg Multivitamins/Minerals/Vitamin C (Tab-A-Vit -) 1 tab PO DAILY [facility] Last Admin: 04/05/18 14:30 Dose: 1 tab Tamsulosin HCl (Flomax -) 0.8 mg PO DAILY@0830 [facility] Last Admin: 04/05/18 14:29 Dose: 0.8 mg Tramadol HCl (Ultram -) 50 mg PO Q8H PRN PRN Reason: PAIN LEVEL 4 - 6 Last Admin: 04/04/18 21:33 Dose: 50 mg - Objective Vital Signs: Vital Signs Temperature 97.3 F L 04/05/18 13:54 Pulse Rate 103 H 04/05/18 13:54 Respiratory Rate 18 04/05/18 13:54 Blood Pressure 125/80 04/05/18 13:54 O2 Sat by Pulse Oximetry (%) 96 04/04/18 21:00 Constitutional: Yes: Calm Eyes: Yes: Conjunctiva Clear HENT: Yes: Atraumatic Cardiovascular: Yes: S1, S2 Respiratory: Yes: CTA Bilaterally Gastrointestinal: Yes: Soft Genitourinary: Yes: Belcher Present Musculoskeletal: Yes: WNL Edema: No Neurological: Yes: Oriented Psychiatric: Yes: Oriented Labs: CBC, BMP 04/05/18 06:00 04/05/18 06:00 Assessment/Plan Current Medications Generic Name Dose Route Start Last Admin Trade Name Freq PRN Reason Stop Dose Admin Acetaminophen 500 mg 04/04/18 05:06 04/04/18 05:27 Tylenol - PO 500 mg Q6H PRN Administration PAIN Albuterol/Ipratropium 1 amp 04/04/18 12:00 04/05/18 15:45 Duoneb - NEB 1 amp RQID [facility] Administration Allopurinol 100 mg 04/03/18 10:00 04/05/18 14:30 Zyloprim - PO 100 mg DAILY [facility]OH[facility] Administration Aspirin 81 mg 04/03/18 10:00 04/05/18 14:28 Asa - PO 81 mg DAILY [facility] Administration Atorvastatin Calcium 10 mg 04/02/18 22:00 04/04/18 21:40 Lipitor - PO 10 mg HS [facility]OHINI Administration Cholecalciferol 1,000 unit 04/03/18 10:00 04/05/18 14:28 Vitamin D3 - PO 1,000 unit DAILY [facility] Administration Fluconazole 200 mg 04/05/18 14:15 Diflucan - PO DAILY [facility] Heparin Sodium (Porcine) 5,000 unit 04/02/18 22:00 04/05/18 14:30 Heparin - SQ Not Given BID [facility] Ceftriaxone Sodium 1 gm/ 50 mls @ 100 mls/hr 04/03/18 15:15 04/05/18 10:23 Dextrose IVPB 100 mls/hr DAILY [facility] Administration Protocol Insulin Aspart 1 vial 04/03/18 07:00 04/05/18 14:30 Novolog Vial Sliding Scale - SQ Not Given ACHS [facility] Protocol Lactobacillus Acidophilus 1 tab 04/03/18 10:00 04/05/18 14:29 Bacid - PO 1 tab DAILY [facility] Administration Melatonin 5 mg 04/04/18 11:43 04/04/18 21:33 Melatonin PO 5 mg HS PRN Administration INSOMNIA Multivitamins/Minerals/Vitamin C 1 tab 04/03/18 10:00 04/05/18 14:30 Tab-A-Vit - PO 1 tab DAILY [facility] Administration Tamsulosin HCl 0.8 mg 04/03/18 08:30 04/05/18 14:29 Flomax - PO 0.8 mg DAILY@0830 [facility] Administration Tramadol HCl 50 mg 04/04/18 11:44 04/04/18 21:33 Ultram - PO 50 mg Q8H PRN Administration PAIN LEVEL 4 - 6 Impression 1. JOHANNA 2. UTI 3. urinary obstruction 4. HTN 5. DM 6. hx colon cancer Plan - renal fucntion is improving - urine is much clearer - repeat labs in am - pt did require an HD session in the past for johanna - cont abx abx and follow cultures - will follow Dr Mercado
[2018-04-05 17:37] LABS: URINE APPEARANCE TURBID; URINE BILIRUBIN NEGATIVE (<2.0 mg/dL); URINE COLOR DKYELLOW; URINE GLUCOSE (UA) 3+ (NEGATIVE); URINE KETONE NEGATIVE (NEGATIVE); URINE LEUK ESTERASE 3+ (NEGATIVE); URINE NITRITE NEGATIVE (NEGATIVE); URINE PROTEIN 2+ (NEGATIVE); URINE UROBILINOGEN NEGATIVE mg/dL (0.2-1.0)
[2018-04-05 17:57] LABS: URINE BACTERIA RARE /hpf (NONE SEEN)
[2018-04-05] MEDS: FLUCONAZOLE 100 MG TABLET (UD) PO SCH (18:45)
[2018-04-05] MEDS ORDERED: PT OWN MED DRAWER 7, Y5N ONE (18:53)
[2018-04-05] MEDS: ATORVASTATIN CA 10 MG TABLET (FP) PO SCH (21:41)
[2018-04-06] MEDS: INSULIN SLIDING SCALE (NOVOLOG) 1 VIAL SQ SCH ×4 (06:12→21:33)
[2018-04-06] MEDS: ALBUTEROL SO4 2.5/IPRATROPIUM 0.5 INH SOL 3 ML VIAL.NEB. NEB SCH ×4 (08:00→20:01)
[2018-04-06 08:38] LABS: ALBUMIN 2.9 g/dl (3.4-5.0); ALK PHOS 83 U/L (45-117); ANION GAP 7 MMOL/L (8-16); BILIRUBIN,TOTAL 0.7 mg/dL (0.2-1); BLOOD UREA NITROGEN 13 mg/dL (7-18); CHLORIDE 107 mmol/L (98-107); CO2 23 mmol/L (21-32); CREATININE 1.1 mg/dL (0.55-1.3); GLUCOSE,RANDOM 157 mg/dL (74-106); POTASSIUM 4.2 mmol/L (3.5-5.1); SGOT/AST 17 U/L (15-37); SGPT/ALT 18 U/L (13-61); SODIUM 138 mmol/L (136-145); TOT PROT 6.8 g/dl (6.4-8.2)
--- NOTE | 2018-04-06 09:04 | PN ---
Progress Note, Physician - Current Medication List Current Medications: Active Medications Acetaminophen (Tylenol -) 500 mg PO Q6H PRN PRN Reason: PAIN Last Admin: 04/04/18 05:27 Dose: 500 mg Albuterol/Ipratropium (Duoneb -) 1 amp NEB RQID [facility] Last Admin: 04/05/18 19:53 Dose: 1 amp Allopurinol (Zyloprim -) 100 mg PO DAILY [facility] Last Admin: 04/05/18 14:30 Dose: 100 mg Aspirin (Asa -) 81 mg PO DAILY [facility] Last Admin: 04/05/18 14:28 Dose: 81 mg Atorvastatin Calcium (Lipitor -) 10 mg PO HS [facility] Last Admin: 04/05/18 21:41 Dose: 10 mg Cholecalciferol (Vitamin D3 -) 1,000 unit PO DAILY [facility] Last Admin: 04/05/18 14:28 Dose: 1,000 unit Fluconazole (Diflucan -) 200 mg PO DAILY [facility] Last Admin: 04/05/18 18:45 Dose: 200 mg Heparin Sodium (Porcine) (Heparin -) 5,000 unit SQ BID [facility] Last Admin: 04/05/18 21:41 Dose: Not Given Ceftriaxone Sodium 1 gm/ (Dextrose) 50 mls @ 100 mls/hr IVPB DAILY [facility]; Protocol Last Admin: 04/05/18 10:23 Dose: 100 mls/hr Insulin Aspart (Novolog Vial Sliding Scale -) 1 vial SQ ACHS [facility]; Protocol Last Admin: 04/06/18 06:12 Dose: Not Given Lactobacillus Acidophilus (Bacid -) 1 tab PO DAILY [facility] Last Admin: 04/05/18 14:29 Dose: 1 tab Melatonin (Melatonin) 5 mg PO HS PRN PRN Reason: INSOMNIA Last Admin: 04/04/18 21:33 Dose: 5 mg Multivitamins/Minerals/Vitamin C (Tab-A-Vit -) 1 tab PO DAILY [facility] Last Admin: 04/05/18 14:30 Dose: 1 tab Tamsulosin HCl (Flomax -) 0.8 mg PO DAILY@0830 [facility] Last Admin: 04/05/18 14:29 Dose: 0.8 mg Tramadol HCl (Ultram -) 50 mg PO Q8H PRN PRN Reason: PAIN LEVEL 4 - 6 Last Admin: 04/04/18 21:33 Dose: 50 mg - Objective Vital Signs: Vital Signs Temperature 98.0 F 04/06/18 06:00 Pulse Rate 91 H 04/06/18 06:00 Respiratory Rate 18 04/06/18 06:00 Blood Pressure 122/62 04/06/18 06:00 O2 Sat by Pulse Oximetry (%) 97 04/05/18 21:00 Cardiovascular: Yes: S1, S2 Respiratory: Yes: Regular, CTA Bilaterally Gastrointestinal: Yes: Normal Bowel Sounds, Soft Genitourinary: Yes: [place] Present Labs: CBC, BMP 04/06/18 06:35 04/06/18 06:35 INR, PTT INR Cancelled 04/06/18 06:35 Problem List - Problems (1) UTI (urinary tract infection) Assessment/Plan: -office ua positive blood and wbc-bact--uc mutiple organisms - Microbiology 04/02/18 19:53 Urine - Urine Clean Catch Urine Culture - Final Yeast Like Organism -ceftriaxone 1g IV q24hrs -ID consult Code(s): N39.0 - URINARY TRACT INFECTION, SITE NOT SPECIFIED Qualifiers: Urinary tract infection type: site unspecified Hematuria presence: without hematuria Qualified Code(s): N39.0 - Urinary tract infection, site not specified (2) CKD (chronic kidney disease) Assessment/Plan: -i/o -daily weights -trend Cr, BUN -avoid nephrotoxins -renal, prostate U/S noted -Renal consult Code(s): N18.9 - CHRONIC KIDNEY DISEASE, UNSPECIFIED (3) Anemia Assessment/Plan: -Monitor -Stable Code(s): D64.9 - ANEMIA, UNSPECIFIED (4) BPH (benign prostatic hyperplasia) Assessment/Plan: -Urology Consult -c/w tamsulosin home dose -Per Urology will need cysto and TURP Code(s): N40.0 - BENIGN PROSTATIC HYPERPLASIA WITHOUT LOWER URINRY TRACT SYMP (5) Preop cardiovascular exam Assessment/Plan: -Evaluated by Dr Ramirez as outpatient--Stress test -cardio Code(s): Z01.810 - ENCOUNTER FOR PREPROCEDURAL CARDIOVASCULAR EXAMINATION
[2018-04-06] MEDS ORDERED: DEXTROSE 5%-WATER - 50 ML IVPB ONE (09:07)
[2018-04-06] MEDS ORDERED: cefTRIAXone SODIUM 1 GM VIAL ONE (09:07)
[2018-04-06] MEDS: CEFTRIAXONE 1 GM in DEXTROSE 5%-WATER - 50 ML IVPB SCH (09:08)
[2018-04-06] MEDS: HEPARIN NA (PORCINE) 5,000 UNITS/ML 1ML VIAL SQ SCH ×2 (09:15→21:33)
[2018-04-06 10:23] LABS: BASO % 0.5 % (0-2.0); EOS % 3.4 % (0-4.5); HEMATOCRIT 33.2 % (35.4-49); HEMOGLOBIN 11.2 GM/dL (11.7-16.9); MCH 30.4 pg (25.7-33.7); MCHC 33.6 g/dl (32.0-35.9); MEAN CELL VOLUME 90.4 fl (80-96); MEAN PLT VOLUME 7.5 fl (7.5-11.1); MONO % 8.6 % (3.8-10.2); NEUT % 62.5 % (42.8-82.8); PLATELET COUNT 197 K/MM3 (134-434); RBC 3.67 M/mm3 (4.00-5.60); RDW 14.5 % (11.9-15.9); WHITE BLOOD COUNT 5.8 K/mm3 (4.0-10.0)
[2018-04-06] MEDS ORDERED: REGADENOSON 0.4 MG/5 ML PRE-FILLED SYRINGE IVPUSH ONE ×2 (10:32→10:45)
[2018-04-06 10:33] LABS: INR 1.23 (0.83-1.09); PROTHROMBIN TIME (PATIENT) 14.5 SEC (9.7-13.0)
[2018-04-06 10:36] LABS: ACTIVATED PTT 31.3 SECONDS (25.2-36.5)
[2018-04-06] MEDS: ALLOPURINOL 100 MG TABLET (FP) PO SCH (12:55)
[2018-04-06] MEDS: MULTIVITAMINS (DAILY MVI) TABLET (FP) PO SCH (12:55)
[2018-04-06] MEDS: ASPIRIN 81 MG CHEWABLE TABLETS PO SCH (12:55)
[2018-04-06] MEDS: TAMSULOSIN HCL 0.4 MG CAP PO SCH (12:55)
[2018-04-06] MEDS: LACTOBACILLUS ACIDOPHILUS 1 TABLET PO SCH (12:55)
[2018-04-06] MEDS: CHOLECALCIFEROL (VITAMIN D3) 400 UNIT TABLET (FP) PO SCH (12:55)
[2018-04-06] MEDS ORDERED: PT OWN MED DRAWER 7, Y5N ONE (12:57)
[2018-04-06] MEDS: FLUCONAZOLE 100 MG TABLET (UD) PO SCH (12:57)
--- NOTE | 2018-04-06 13:18 | CON.CARD ---
Consult Consult Specialty:: cardiology Referred by:: Dr. Adrian Reason for Consultation:: preop cardiac evaluation for TUVP - History of Present Illness Chief Complaint: urinary retention History of Present Illness: 77 year old man with pmh HTN, HLD< DMII, prior renal stones, BPH admitted with dysuria, UTI, urinary retention, planned for possible TUVP. Pt seen and examined and discussed with his family. Up until a few months ago pt was very active able to walk up and down 1 flight of stairs at home and go to the grocery store. denies any chest pain or sob either at rest or with exertion. he states that due to his prostate/bladder issues the past few months he has been mainly at home and not active. denies pnd, orhtonpea, or le edema. no palpitations, syncope or near syncope. - History Source History Provided By: Patient, Family Member Limitations to Obtaining History: No Limitations - Past Medical History Cardio/Vascular: Yes: HTN, Hyperlipdemia Gastrointestinal: Yes: Cancer (COLON) Renal/: Yes: BPH, UTI Endocrine: Yes: Diabetes Mellitus - Alcohol/Substance Use Hx Alcohol Use: No (RARELY) - Smoking History Smoking history: Unknown if ever smoked Have you smoked in the past 12 months: No Aproximately how many cigarettes per day: 0 If you are a former smoker, when did you quit?: About 50 years ago - Social History Usual Living Arrangement: With Child ADL: Family Assistance History of Recent Travel: No Home Medications - Allergies Allergies/Adverse Reactions: Allergies Allergy/AdvReac Type Severity Reaction Status Date / Time No Known Allergies Allergy Verified 04/02/18 18:12 - Home Medications Home Medications: Ambulatory Orders Allopurinol [Zyloprim -] 100 mg PO DAILY 07/06/14 Multivitamins [Multivit ([facility] Formulary)] 1 tab PO DAILY 07/06/14 Vitamin B Complex [B Complex] 1 each PO DAILY 07/06/14 Atorvastatin Ca [Lipitor] 10 mg PO HS 07/10/17 Tamsulosin HCl 0.8 mg PO DAILY 07/10/17 Lactobacillus Acidophilus [Bacid -] 1 tab PO DAILY tab 09/08/17 Sitagliptin Phosphate [Januvia -] 25 mg PO DAILY@0700 tab 09/08/17 Aspirin 81 mg PO DAILY 04/02/18 Cholecalciferol (Vitamin D3) [Vitamin D3 -] 1,000 unit PO DAILY 04/02/18 Family Disease History - Family Disease History Family History: Denies Review of Systems - Review of Systems Constitutional: reports: Weakness. denies: No Symptoms, Chills, Diaphoresis, Fever, Lethargy, Loss of Appetite, Malaise, Night Sweats, Unintentional Wgt. Loss, Other Eyes: denies: No Symptoms, Blind Spots, Blurred Vision, Double Vision, Eye Pain , Floaters, Photophobia, Recent Change in Vision, Other HENT: denies: No Symptoms, Difficult Swallowing, Ear Discharge, Ear Pain, Epistaxis, Gingival Bleeding, Hearing Loss, Mouth Swelling, Nasal Congestion, Ocular Prosthesis, Throat Pain, Toothache, Ringing in Ears, Other Neck: denies: No Symptoms, Decreased ROM, Lumps, Pain on Movement, Stiffness, Swollen Glands, Tenderness, Other Cardiovascular: denies: No Symptoms, Chest Pain, Edema, Palpitations, Shortness of Breath, Other Respiratory: denies: No Symptoms, Cough, Exercise Intolerance, Hemoptysis, Orthopnea, PND, Snoring, SOB, SOB on Exertion, Wheezing, Other Gastrointestinal: denies: No Symptoms, Abdominal Pain, Bloating, Constipation, Diarrhea, Dysphagia, Indigestion, Melena, Nausea, Rectal Bleeding, Vomiting, Vomiting Blood, Other Genitourinary: reports: Dysuria. denies: No Symptoms, Burning, Discharge, Flank Pain, Frequency, Hematuria, Incontinence, Lesions, Menses, Pain, Testicular Mass, Testicular Pain, Testicular Swelling, Urgency, Vaginal Bleeding , Other Breasts: denies: No Symptoms Reported, See HPI, Breast Implants, Discharge from Nipple, Lumps, Pain, Skin Changes, Other Musculoskeletal: denies: No Symptoms, Back Pain, Crepitus, Decreased ROM, Extremity Pain, Joint Pain, Joint Swelling, Muscle Pain, Muscle Cramps, Muscle Weakness, Other Integumentary: denies: No Symptoms, Blister, Bruising, Change in Color, Eczema, Erythema, Incision, Lesions, Lump, Pallor, Pruritis, Rash, Wound, Other Neurological: denies: No Symptoms, Change in LOC, Change in Speech, Confusion, Dizziness, Headache, Incoordination, Numbness, Parasthesia, Pre-Existing Deficit , Seizure, Syncope, Tremors, Unsteady Gait, Weakness, Other Endocrine: denies: No Symptoms, Excessive Sweating, Flushing, Increased Hunger, Increased Thirst, Intolerance to Cold, Intolerance to Heat, Unexplained Weight Gain, Unexplained Weight Loss, Other Hematology/Lymphatic: denies: No Symptoms, Easily Bruised, Excessive Bleeding, Swollen Glands, Other Psychiatric: denies: No Symptoms, Altered Sleep Pattern, Anxiety, Depression, Hallucinations, Panic, Paranoia, Suicidal, Other - Risk Factors Known Risk Factors: Yes: Age, Hypertension Vital Signs: Vital Signs Temperature 97.2 F L 04/06/18 13:13 Pulse Rate 113 H 04/06/18 13:13 Respiratory Rate 18 04/06/18 13:13 Blood Pressure 141/74 04/06/18 13:13 O2 Sat by Pulse Oximetry (%) 95 04/06/18 09:00 Constitutional: Yes: No Distress, Calm Eyes: Yes: Conjunctiva Clear, EOM Intact HENT: Yes: Atraumatic, Normocephalic Neck: Yes: Supple, Trachea Midline Respiratory: Yes: Regular, CTA Bilaterally. No: Rales, Rhonchi, Wheezes Gastrointestinal: No: Normal Bowel Sounds, Soft Cardiovascular: Yes: Regular Rate and Rhythm. No: Bradycardia, Tachycardia, Pulse Irregular, Gallop, Rub, Varicosities JVD: No Carotid Bruit: No PMI: Non-Displaced Heart Sounds: Yes: S1, S2. No: Split S2, S3, S4, Clicks, Gallop, Rub, Bruit Murmur: No: Systolic Murmur, Diastolic Murmur Musculoskeletal: Yes: Muscle Weakness Extremities: Yes: WNL Edema: No Peripheral Pulses WNL: Yes Neurological: Yes: Alert, Oriented Psychiatric: Yes: Alert, Oriented - Other Data Labs, Other Data: CBC, BMP 04/06/18 09:45 04/06/18 06:35 INR, PTT INR 1.23 (0.83-1.09) H 04/06/18 09:45 Troponin, BNP 04/05/18 04/06/18 13:40 06:35 Troponin I < 0.02 < 0.02 Troponin, BNP 04/05/18 04/06/18 13:40 06:35 Troponin I < 0.02 < 0.02 nsr rbbb Echo: Pending Imaging - Results Chest X-ray: Report Reviewed, Image Reviewed EKG: Report Reviewed, Image Reviewed Other: Report Reviewed, Image Reviewed Assessment/Plan 77 year old man with pmh HTN, HLD< DMII, prior renal stones, BPH admitted with dysuria, UTI, urinary retention, planned for possible TUVP. Pt seen and examined and discussed with his family. Up until a few months ago pt was very active able to walk up and down 1 flight of stairs at home and go to the grocery store. denies any chest pain or sob either at rest or with exertion. he states that due to his prostate/bladder issues the past few months he has been mainly at home and not active. denies pnd, orhtonpea, or le edema. no palpitations, syncope or near syncope. Preop cardiac risk stratification -until recently pt was ambulatory without chest pain or sob as above -HTN is adequately controlled -there are no current absolute cardiac contraindications to the planned procedure -nuclear stress test was done today, fup results, if no sig ischemia then pt would be acceptable to proceed with surgery without additional cardiac work up. Please call with any additional questions.
--- NOTE | 2018-04-06 13:25 | PN ---
Progress Note, Physician History of Present Illness: Pt seen and examined at bedside. He is awake and alert. He denies shortness of breath. - Current Medication List Current Medications: Active Medications Acetaminophen (Tylenol -) 500 mg PO Q6H PRN PRN Reason: PAIN Last Admin: 04/04/18 05:27 Dose: 500 mg Albuterol/Ipratropium (Duoneb -) 1 amp NEB RQID [facility] Last Admin: 04/06/18 12:24 Dose: Not Given Allopurinol (Zyloprim -) 100 mg PO DAILY [facility] Last Admin: 04/06/18 12:55 Dose: 100 mg Aspirin (Asa -) 81 mg PO DAILY [facility] Last Admin: 04/06/18 12:55 Dose: 81 mg Atorvastatin Calcium (Lipitor -) 10 mg PO HS [facility] Last Admin: 04/05/18 21:41 Dose: 10 mg Cholecalciferol (Vitamin D3 -) 1,000 unit PO DAILY [facility] Last Admin: 04/06/18 12:55 Dose: 1,000 unit Fluconazole (Diflucan -) 200 mg PO DAILY [facility] Last Admin: 04/06/18 12:57 Dose: 200 mg Heparin Sodium (Porcine) (Heparin -) 5,000 unit SQ BID [facility] Last Admin: 04/06/18 09:15 Dose: 5,000 unit Ceftriaxone Sodium 1 gm/ (Dextrose) 50 mls @ 100 mls/hr IVPB DAILY [facility]; Protocol Last Admin: 04/06/18 09:08 Dose: 100 mls/hr Insulin Aspart (Novolog Vial Sliding Scale -) 1 vial SQ ACHS [facility]; Protocol Last Admin: 04/06/18 12:19 Dose: 6 units Lactobacillus Acidophilus (Bacid -) 1 tab PO DAILY [facility] Last Admin: 04/06/18 12:55 Dose: 1 tab Melatonin (Melatonin) 5 mg PO HS PRN PRN Reason: INSOMNIA Last Admin: 04/04/18 21:33 Dose: 5 mg Multivitamins/Minerals/Vitamin C (Tab-A-Vit -) 1 tab PO DAILY [facility] Last Admin: 04/06/18 12:55 Dose: 1 tab Tamsulosin HCl (Flomax -) 0.8 mg PO DAILY@0830 [facility] Last Admin: 04/06/18 12:55 Dose: 0.8 mg Tramadol HCl (Ultram -) 50 mg PO Q8H PRN PRN Reason: PAIN LEVEL 4 - 6 Last Admin: 04/04/18 21:33 Dose: 50 mg - Objective Vital Signs: Vital Signs Temperature 97.2 F L 04/06/18 13:13 Pulse Rate 113 H 04/06/18 13:13 Respiratory Rate 18 04/06/18 13:13 Blood Pressure 141/74 04/06/18 13:13 O2 Sat by Pulse Oximetry (%) 95 04/06/18 09:00 Constitutional: Yes: Calm Eyes: Yes: Conjunctiva Clear HENT: Yes: Atraumatic Cardiovascular: Yes: S1, S2 Respiratory: Yes: CTA Bilaterally Gastrointestinal: Yes: Normal Bowel Sounds, Soft Genitourinary: Yes: WNL Musculoskeletal: Yes: WNL Edema: No Neurological: Yes: Oriented Psychiatric: Yes: Oriented Labs: CBC, BMP 04/06/18 09:45 04/06/18 06:35 INR, PTT INR 1.23 (0.83-1.09) H 04/06/18 09:45 Assessment/Plan Current Medications Generic Name Dose Route Start Last Admin Trade Name Chary PRN Reason Stop Dose Admin Acetaminophen 500 mg 04/04/18 05:06 04/04/18 05:27 Tylenol - PO 500 mg Q6H PRN Administration PAIN Albuterol/Ipratropium 1 amp 04/04/18 12:00 04/06/18 12:24 Duoneb - NEB Not Given RQID [facility] Allopurinol 100 mg 04/03/18 10:00 04/06/18 12:55 Zyloprim - PO 100 mg DAILY [facility] Administration Aspirin 81 mg 04/03/18 10:00 04/06/18 12:55 Asa - PO 81 mg DAILY [facility] Administration Atorvastatin Calcium 10 mg 04/02/18 22:00 04/05/18 21:41 Lipitor - PO 10 mg HS [facility] Administration Cholecalciferol 1,000 unit 04/03/18 10:00 04/06/18 12:55 Vitamin D3 - PO 1,000 unit DAILY [facility] Administration Fluconazole 200 mg 04/05/18 14:15 04/06/18 12:57 Diflucan - PO 200 mg DAILY [facility] Administration Heparin Sodium (Porcine) 5,000 unit 04/02/18 22:00 04/06/18 09:15 Heparin - SQ 5,000 unit BID [facility] Administration Ceftriaxone Sodium 1 gm/ 50 mls @ 100 mls/hr 04/03/18 15:15 04/06/18 09:08 Dextrose IVPB 100 mls/hr DAILY [facility] Administration Protocol Insulin Aspart 1 vial 04/03/18 07:00 04/06/18 12:19 Novolog Vial Sliding Scale - SQ 6 units ACHS [facility] Administration Protocol Lactobacillus Acidophilus 1 tab 04/03/18 10:00 04/06/18 12:55 Bacid - PO 1 tab DAILY [facility] Administration Melatonin 5 mg 04/04/18 11:43 04/04/18 21:33 Melatonin PO 5 mg HS PRN Administration INSOMNIA Multivitamins/Minerals/Vitamin C 1 tab 04/03/18 10:00 04/06/18 12:55 Tab-A-Vit - PO 1 tab DAILY [facility] Administration Tamsulosin HCl 0.8 mg 04/03/18 08:30 04/06/18 12:55 Flomax - PO 0.8 mg DAILY@0830 [facility] Administration Tramadol HCl 50 mg 04/04/18 11:44 04/04/18 21:33 Ultram - PO 50 mg Q8H PRN Administration PAIN LEVEL 4 - 6 Impression 1. JOHANNA 2. UTI 3. urinary obstruction 4. HTN 5. DM 6. hx colon cancer Plan - cont to monitor renal function - creatinine is improving - urine is clearer - urology follow up - abx per ID - will follow Dr Mercado
--- NOTE | 2018-04-06 17:35 | PN ---
Progress Note (short form) - Note Progress Note: UROLOGY NOTE Plan NPO after midnight for tomorrow Cystoscopy TUVP.
--- NOTE | 2018-04-06 18:44 | PN ---
Progress Note (short form) - Note Progress Note: la is out urine is cloudy in the urinal Vital Signs Period Temp Pulse Resp BP Sys/Marte Pulse Ox Last 24 Hr 97.2 F-98.5 F 91-113 18-18 122-150/62-87 95-97 cor-rrr lungs clear abd soft,nt ext no edema CBC, BMP 04/06/18 09:45 04/06/18 06:35 Microbiology 04/02/18 19:53 Urine - Urine Clean Catch Urine Culture - Final Yeast Like Organism a/p urinary retention/BPH rpeat ua noted, urine culture pending day #2 diflucan remains on ceftriaxone would postpone urologic procedure until UTI is resolved have paged urology to discuss family is aware nursing staff is aware plan 10 days diflucan, repeat urine culture prior to procedure d/w dr mascorro Problem List - Problems (1) UTI (urinary tract infection) Code(s): N39.0 - URINARY TRACT INFECTION, SITE NOT SPECIFIED Qualifiers: Urinary tract infection type: site unspecified Hematuria presence: without hematuria Qualified Code(s): N39.0 - Urinary tract infection, site not specified (2) Urinary retention Code(s): R33.9 - RETENTION OF URINE, UNSPECIFIED
[2018-04-06] MEDS: ATORVASTATIN CA 10 MG TABLET (FP) PO SCH (21:33)
[2018-04-07] MEDS: INSULIN SLIDING SCALE (NOVOLOG) 1 VIAL SQ SCH ×2 (06:42→11:59)
[2018-04-07] MEDS: ALBUTEROL SO4 2.5/IPRATROPIUM 0.5 INH SOL 3 ML VIAL.NEB. NEB SCH ×2 (09:03→12:36)
[2018-04-07 09:15] VITALS: BP 132/85; PULSE 107; TEMP 98.6
--- NOTE | 2018-04-07 09:32 | DS ---
Physical Examination Vital Signs: Vital Signs Temperature 98.6 F 04/07/18 09:13 Pulse Rate 107 H 04/07/18 09:13 Respiratory Rate 18 04/07/18 09:13 Blood Pressure 132/85 04/07/18 09:13 O2 Sat by Pulse Oximetry (%) 95 04/06/18 09:00 Cardiovascular: Yes: Regular Rate and Rhythm Respiratory: Yes: Regular, CTA Bilaterally Gastrointestinal: Yes: Normal Bowel Sounds, Soft Labs: CBC, BMP 04/06/18 09:45 04/06/18 06:35 Discharge Summary Reason For Visit: URINARY TRACT INFECTION Current Active Problems Anemia (Acute) BPH (benign prostatic hyperplasia) (Acute) CKD (chronic kidney disease) (Acute) Dysuria (Acute) Preop cardiovascular exam (Acute) UTI (urinary tract infection) (Acute) Urinary retention (Acute) Hospital Course: - Problems (1) UTI (urinary tract infection) Assessment/Plan: -office ua positive blood and wbc-bact--uc mutiple organisms - Microbiology 04/02/18 19:53 Urine - Urine Clean Catch Urine Culture - Final Yeast Like Organism -diflucan 200 qd -ID consult Code(s): N39.0 - URINARY TRACT INFECTION, SITE NOT SPECIFIED Qualifiers: Urinary tract infection type: site unspecified Hematuria presence: without hematuria Qualified Code(s): N39.0 - Urinary tract infection, site not specified (2) CKD (chronic kidney disease) Assessment/Plan: -i/o -daily weights -trend Cr, BUN -avoid nephrotoxins -renal, prostate U/S noted -Renal consult Code(s): N18.9 - CHRONIC KIDNEY DISEASE, UNSPECIFIED (3) Anemia Assessment/Plan: -Monitor -Stable Code(s): D64.9 - ANEMIA, UNSPECIFIED (4) BPH (benign prostatic hyperplasia) Assessment/Plan: -Urology Consult -c/w tamsulosin home dose -Per Urology will need cysto and TURP after RX of uti Code(s): N40.0 - BENIGN PROSTATIC HYPERPLASIA WITHOUT LOWER URINRY TRACT SYMP (5) Preop cardiovascular exam Assessment/Plan: -Evaluated by Dr Ramirez as outpatient--Stress test -cardio Code(s): Z01.810 - ENCOUNTER FOR PREPROCEDURAL CARDIOVASCULAR EXAMINATION Condition: Stable - Instructions Referrals: Aspen Adrian MD [Primary Care Provider] - 1 Week - Home Medications Comprehensive Discharge Medication List: Ambulatory Orders Allopurinol [Zyloprim -] 100 mg PO DAILY 07/06/14 Multivitamins [Multivit ([facility] Formulary)] 1 tab PO DAILY 07/06/14 Vitamin B Complex [B Complex] 1 each PO DAILY 07/06/14 Atorvastatin Ca [Lipitor] 10 mg PO HS 07/10/17 Tamsulosin HCl 0.8 mg PO DAILY 07/10/17 Lactobacillus Acidophilus [Bacid -] 1 tab PO DAILY tab 09/08/17 Sitagliptin Phosphate [Januvia -] 25 mg PO DAILY@0700 tab 09/08/17 Aspirin 81 mg PO DAILY 04/02/18 Cholecalciferol (Vitamin D3) [Vitamin D -] 1,000 unit PO DAILY 04/02/18 Fluconazole [Diflucan -] 200 mg PO DAILY #10 tablet 04/07/18 traMADol HCL [Ultram -] 50 mg PO Q8H PRN #30 tablet MDD 3 04/07/18
[2018-04-07] MEDS ORDERED: PT OWN MED DRAWER 7, Y5N ONE (09:45)
[2018-04-07] MEDS ORDERED: DEXTROSE 5%-WATER - 50 ML IVPB ONE (09:46)
[2018-04-07] MEDS ORDERED: cefTRIAXone SODIUM 1 GM VIAL ONE (09:46)
[2018-04-07] MEDS: CHOLECALCIFEROL (VITAMIN D3) 400 UNIT TABLET (FP) PO SCH (09:49)
[2018-04-07] MEDS: FLUCONAZOLE 100 MG TABLET (UD) PO SCH (09:49)
[2018-04-07] MEDS: LACTOBACILLUS ACIDOPHILUS 1 TABLET PO SCH (09:49)
[2018-04-07] MEDS: TAMSULOSIN HCL 0.4 MG CAP PO SCH (09:49)
[2018-04-07] MEDS: MULTIVITAMINS (DAILY MVI) TABLET (FP) PO SCH (09:49)
[2018-04-07] MEDS: CEFTRIAXONE 1 GM in DEXTROSE 5%-WATER - 50 ML IVPB SCH (09:49)
[2018-04-07] MEDS: HEPARIN NA (PORCINE) 5,000 UNITS/ML 1ML VIAL SQ SCH (09:54)
[2018-04-07] MEDS: ALLOPURINOL 100 MG TABLET (FP) PO SCH (09:54)
[2018-04-07] MEDS: ASPIRIN 81 MG CHEWABLE TABLETS PO SCH (09:54)
--- NOTE | 2018-04-07 12:11 | PN ---
Progress Note, Physician History of Present Illness: Pt seen and examined at bedside. He is awake and appears comfortable. He denies shortness of breath. - Current Medication List Current Medications: Active Medications Acetaminophen (Tylenol -) 500 mg PO Q6H PRN PRN Reason: PAIN Last Admin: 04/04/18 05:27 Dose: 500 mg Albuterol/Ipratropium (Duoneb -) 1 amp NEB RQID [facility] Last Admin: 04/07/18 09:03 Dose: 1 amp Allopurinol (Zyloprim -) 100 mg PO DAILY [facility] Last Admin: 04/07/18 09:54 Dose: 100 mg Aspirin (Asa -) 81 mg PO DAILY [facility] Last Admin: 04/07/18 09:54 Dose: 81 mg Atorvastatin Calcium (Lipitor -) 10 mg PO HS [facility] Last Admin: 04/06/18 21:33 Dose: 10 mg Cholecalciferol (Vitamin D3 -) 1,000 unit PO DAILY [facility] Last Admin: 04/07/18 09:49 Dose: 1,000 unit Fluconazole (Diflucan -) 200 mg PO DAILY [facility] Last Admin: 04/07/18 09:49 Dose: 200 mg Heparin Sodium (Porcine) (Heparin -) 5,000 unit SQ BID [facility] Last Admin: 04/07/18 09:54 Dose: 5,000 unit Ceftriaxone Sodium 1 gm/ (Dextrose) 50 mls @ 100 mls/hr IVPB DAILY [facility]; Protocol Last Admin: 04/07/18 09:49 Dose: 100 mls/hr Insulin Aspart (Novolog Vial Sliding Scale -) 1 vial SQ ACHS [facility]; Protocol Last Admin: 04/07/18 11:59 Dose: 4 units Lactobacillus Acidophilus (Bacid -) 1 tab PO DAILY [facility] Last Admin: 04/07/18 09:49 Dose: 1 tab Melatonin (Melatonin) 5 mg PO HS PRN PRN Reason: INSOMNIA Last Admin: 04/04/18 21:33 Dose: 5 mg Multivitamins/Minerals/Vitamin C (Tab-A-Vit -) 1 tab PO DAILY [facility] Last Admin: 04/07/18 09:49 Dose: 1 tab Tamsulosin HCl (Flomax -) 0.8 mg PO DAILY@0830 [facility] Last Admin: 04/07/18 09:49 Dose: 0.8 mg Tramadol HCl (Ultram -) 50 mg PO Q8H PRN PRN Reason: PAIN LEVEL 4 - 6 Last Admin: 04/04/18 21:33 Dose: 50 mg - Objective Vital Signs: Vital Signs Temperature 98.6 F 04/07/18 09:13 Pulse Rate 107 H 04/07/18 09:13 Respiratory Rate 18 04/07/18 09:13 Blood Pressure 132/85 04/07/18 09:13 O2 Sat by Pulse Oximetry (%) 95 04/06/18 09:00 Constitutional: Yes: Calm Eyes: Yes: Conjunctiva Clear HENT: Yes: Atraumatic Neck: Yes: Supple Cardiovascular: Yes: S1, S2 Respiratory: Yes: CTA Bilaterally Gastrointestinal: Yes: Soft Genitourinary: Yes: WNL Musculoskeletal: Yes: WNL Edema: No Neurological: Yes: Oriented Psychiatric: Yes: Oriented Labs: CBC, BMP 04/06/18 09:45 04/06/18 06:35 INR, PTT INR 1.23 (0.83-1.09) H 04/06/18 09:45 Assessment/Plan Current Medications Generic Name Dose Route Start Last Admin Trade Name Brijeshq PRN Reason Stop Dose Admin Acetaminophen 500 mg 04/04/18 05:06 04/04/18 05:27 Tylenol - PO 500 mg Q6H PRN Administration PAIN Albuterol/Ipratropium 1 amp 04/04/18 12:00 04/07/18 09:03 Duoneb - NEB 1 amp RQID [facility] Administration Allopurinol 100 mg 04/03/18 10:00 04/07/18 09:54 Zyloprim - PO 100 mg DAILY [facility] Administration Aspirin 81 mg 04/03/18 10:00 04/07/18 09:54 Asa - PO 81 mg DAILY [facility] Administration Atorvastatin Calcium 10 mg 04/02/18 22:00 04/06/18 21:33 Lipitor - PO 10 mg HS [facility] Administration Cholecalciferol 1,000 unit 04/03/18 10:00 04/07/18 09:49 Vitamin D3 - PO 1,000 unit DAILY [facility] Administration Fluconazole 200 mg 04/05/18 14:15 04/07/18 09:49 Diflucan - PO 200 mg DAILY [facility] Administration Heparin Sodium (Porcine) 5,000 unit 04/02/18 22:00 04/07/18 09:54 Heparin - SQ 5,000 unit BID [facility] Administration Ceftriaxone Sodium 1 gm/ 50 mls @ 100 mls/hr 04/03/18 15:15 04/07/18 09:49 Dextrose IVPB 100 mls/hr DAILY [facility] Administration Protocol Insulin Aspart 1 vial 04/03/18 07:00 04/07/18 11:59 Novolog Vial Sliding Scale - SQ 4 units ACHS [facility] Administration Protocol Lactobacillus Acidophilus 1 tab 04/03/18 10:00 04/07/18 09:49 Bacid - PO 1 tab DAILY [facility] Administration Melatonin 5 mg 04/04/18 11:43 04/04/18 21:33 Melatonin PO 5 mg HS PRN Administration INSOMNIA Multivitamins/Minerals/Vitamin C 1 tab 04/03/18 10:00 04/07/18 09:49 Tab-A-Vit - PO 1 tab DAILY [facility] Administration Tamsulosin HCl 0.8 mg 04/03/18 08:30 04/07/18 09:49 Flomax - PO 0.8 mg DAILY@0830 [facility] Administration Tramadol HCl 50 mg 04/04/18 11:44 04/04/18 21:33 Ultram - PO 50 mg Q8H PRN Administration PAIN LEVEL 4 - 6 Impression 1. JOHANNA 2. UTI 3. urinary obstruction 4. HTN 5. DM 6. hx colon cancer Plan - renal function stable - repeat ua once infection clears - will need outpt follow up - urology follow up - avoid nsaids and nephrotoxins - abx per ID - will follow Dr Mercado
== END 2018-04-07 13:29 | disposition home or self-care (01) | DRG 683 ==
LOC: JER 18:08 → JERBED 21:22 → J5S 04-03 14:23
PROVIDERS: ADMIT Internal Medicine; ATTEND Family Medicine
DX: N17.9 Acute kidney failure, unspecified (principal); N39.0 Urinary tract infection, site not specified; N40.1 Benign prostatic hyperplasia with lower urinary tract symptoms; D64.9 Anemia, unspecified; N18.9 Chronic kidney disease, unspecified; E78.5 Hyperlipidemia, unspecified; R33.9 Retention of urine, unspecified; E11.65 Type 2 diabetes mellitus with hyperglycemia; I12.9 Hypertensive chronic kidney disease with stage 1 through stage 4 chronic kidney disease, or unspecified chronic kidney disease
CPT/HCPCS: 36415; 71046-TC-FY; 76775-TC; 76856-TC; 78452-TC; 80048; 80053; 81003; 81015; 82550; 82962; 84484; 85025; 85610; 85730; 86850; 86900; 86901; 87077; 87086; 93005; 93010; 93017; 94640; 99283-25; A9502; J1644; J2785; J7030

== ENCOUNTER 2018-04-13 07:31 | Emergency (ER) | payer OTHER ==
[2018-04-13] MEDS ORDERED: MAGNESIUM SULF 50% (8.12 MEQ/2 ML-1 GM VIAL) ONE (07:53)
[2018-04-13] MEDS ORDERED: EPINEPHrine 1:10,000 (P-F SYR) 1 MG/10 ML DISP.SYRIN ONE (07:54)
[2018-04-13] MEDS ORDERED: SODIUM BICARBONATE 8.4% - 100 ML ONE (07:54)
[2018-04-13] MEDS ORDERED: CALCIUM CHLORIDE 1 GM/10 ML *DISP.SYRIN ONE (07:54)
--- NOTE | 2018-04-13 08:05 | PDOC ---
History of Present Illness - General Stated Complaint: UNRESPONSIVE Time Seen by Provider: 04/13/18 07:53 - History of Present Illness Initial Comments: 04/13/18 07:56 77 yo M with h/o HLD, DM, HTN, CKD BIBA s/p cardiac arrest. 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 Patient found unresponsive, asystole, on EMS arrival. Intubated in field. Noted to have ROSC 7-705 AM, and paced rhythm , rhythm abolished, v-fib, torsades, PEA. Patient received 6 rounds of epinephrin, 6 defibrillation, 1 amioadarone, 1 calcium, 1 magnesium in route. Past History - Past Medical History Allergies/Adverse Reactions: Allergies Allergy/AdvReac Type Severity Reaction Status Date / Time No Known Allergies Allergy Verified 04/02/18 18:12 Home Medications: Ambulatory Orders Allopurinol [Zyloprim -] 100 mg PO DAILY 07/06/14 Multivitamins [Multivit ([facility])] 1 tab PO DAILY 07/06/14 Vitamin B Complex [B Complex] 1 each PO DAILY 07/06/14 Atorvastatin Ca [Lipitor] 10 mg PO HS 07/10/17 Tamsulosin HCl 0.8 mg PO DAILY 07/10/17 Lactobacillus Acidophilus [Bacid -] 1 tab PO DAILY tab 09/08/17 Sitagliptin Phosphate [Januvia -] 25 mg PO DAILY@0700 tab 09/08/17 Aspirin 81 mg PO DAILY 04/02/18 Cholecalciferol (Vitamin D3) [Vitamin D -] 1,000 unit PO DAILY 04/02/18 Fluconazole [Diflucan -] 200 mg PO DAILY #10 tablet 04/07/18 traMADol HCL [Ultram -] 50 mg PO Q8H PRN #30 tablet MDD 3 04/07/18 Anemia: No Asthma: No 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) Cardiac Disorders: No CVA: No COPD: No CHF: No Dementia: No Diabetes: Yes (NIDDM) GI Disorders: Yes (DIVERTICULOSIS, COLON POLYPS) Disorders: Yes (KIDNEY STONES) HTN: Yes Hypercholesterolemia: Yes (pt denies) Liver Disease: Yes (NAFLD-pt denies) Seizures: No Thyroid Disease: No - Surgical History Abdominal Surgery: Yes (LEFT HEMICOLECTOMY W/TEMP LOOP ILEOSTOMY 2011) Appendectomy: No Cardiac Surgery: (BILAT IRIDECTOMIES) Cholecystectomy: No Lung Surgery: No Neurologic Surgery: No Orthopedic Surgery: No - Immunization History Td Vaccination: No TDAP Vaccination: No Immunization Up to Date: No - Suicide/Smoking/Psychosocial Hx Smoking Status: No Smoking History: Unknown if ever smoked Have you smoked in the past 12 months: No Number of Cigarettes Smoked Daily: 0 If you are a former smoker, when did you quit?: About 50 years ago Hx Alcohol Use: No (RARELY) Drug/Substance Use Hx: No Substance Use Type: Alcohol Hx Substance Use Treatment: No Review of Systems - Review of Systems Comments:: 04/13/18 07:59 Patient cardiac arrest. Unable to obtain. *Physical Exam - Physical Exam Comments: 04/13/18 08:00 GENERAL: Unresponsive, comatose HEAD: No signs of trauma, normocephalic, atraumatic EYES:Pupils fixed dilated ENT: Auricles normal inspection, nares patent, oropharynx clear withoutexudates. Moist mucosa NECK: Supple, no lymphadenopathy, JVD, or masses LUNGS: No distress, speaks full sentences, clear to auscultation bilaterally HEART: asystole, abset rhythm, or rate, no peripheral pulses. ABDOMEN: Soft, nontender, normoactive bowel sounds. No guarding, no rebound. No masses EXTREMITIES : No edema. + cyanosis. NEUROLOGICAL: Cranial nerves II through XII not intact. SKIN: Cold, Dry, no rashes or lesions noted Medical Decision Making - Medical Decision Making 04/13/18 08:05 77 yo M with h/o HLD, DM, HTN, CKD BIBA s/p cardiac arrest. 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 Patient found unresponsive, asystole, on EMS arrival. Intubated in field. Noted to have ROSC 7-705 AM, and paced rhythm , rhythm abolished, v-fib, torsades, PEA. Patient received 6 rounds of epinephrine, 6 defibrillation, 1 amiodarone, 1 calcium, 1 magnesium in route. Evaluate for reversible causes of cardiac arrest including possible hypo/ hyperkalamiea, hypothermia, hypovolemia, hypoxia/hypoxemia, acidosis, tamponade , toxins, tension pneumo, thrombosis ( cardiac/pulm). ED Course: Resuscitation started in trauma bay 729 AM. Noted to be in PEA, and asystole throughout. Absent spontaneous cardiac or respiratory activity ( 1+ hour) . ET tube confirmed direct visualization. Absent defibrillation delivered. Patient received multiple rounds of chest compressions,frequent pulse checks x 9 , 2 epinephrine ( 8 total), 1 calcium chloride ( 2 total), 1 magnesium ( 2 total ), 1 sodium bicarbonate ( 2 total). Cardiac U/S with global hypokinesis, absent wall motion. Patient family members brought in and witnessed cardiac arrest resuscitation efforts Absent brain stem reflexes, Patient pronounced at 749 AM 04/13/18 08:[address] Aspen Adrian answering service. Awaiting call back. Next of kin Catherine flower [phone] 04/13/18 09:00 [place] [employer] Declines Case [id number] *DC/Admit/Observation/Transfer Diagnosis at time of Disposition: Cardiac arrest, - Discharge Dispostion Disposition: - Referrals Referrals: Aspen Adrian MD [Primary Care Provider] - - Patient Instructions - Post Discharge Activity Critical Care Time/MDM Note Total Critical Care Time: 45 Critical Care Statement: The care of this patient involved high complexity decision making to prevent further life threatening deterioration of the patient 's condition and/or to evaluate & treat vital organ system(s) failure or risk of failure.
--- NOTE | 2018-04-13 10:05 | PDOC ---
Attending Attestation - Resident Resident Name: Ant Lomeli - HPI HPI: 04/13/18 09:55 77 M with h/o HLD, DM, HTN, CKD, presenting to ED in cardiac arrest. Arrest was witnessed by family members, who state that he vomited, rolled out of bed, and collapsed. CPR was initiated by EMS after estimated downtime of 20 minutes. Pt initially found to be in Vfib, shocked 6 times en route, with transient ROSC , but arrested again. Pt was given 8 rounds of epi, Mg, Ca, Amio and bicarb en route. Upon arrival to ED, pt was persistently in asystole Resuscitation was continued per ACLS protocol for approx 30 minutes No ROSC was obtained Family brought into room during resuscitation. No cardiac motion detected on bedside US. Resuscitative efforts terminated and pt pronounced at 7:49AM - Physicial Exam PE: 04/13/18 10:06 Agree with resident exam - Critical Care Time Total Critical Care Time: 60 Critical Care Statement: The care of this patient involved high complexity decision making to prevent further life threatening deterioration of the patient 's condition and/or to evaluate & treat vital organ system(s) failure or risk of failure. - Medical Decision Making 04/13/18 10:06 77 M with cardiac arrest, now after approx 1 hour of down time and resuscitation per ACLS protocol. Cause of uncertain. Possibly NV or PE. Pt also had apparent abdominal hernia which may have been incarcerated. Given h/o vomiting prior to arrest, pt may have aspirated 2/2 incarcerated hernia. Pt was not stable at any point for surgical intervention. Family at bedside
== END 2018-04-13 22:57 | disposition expired ==
LOC: JER 07:31
PROC: 5A12012 Performance of Cardiac Output, Single, Manual (ICD-10-PCS; principal; 2018-04-13)
PROC: B24BZZZ Ultrasonography of Heart with Aorta (ICD-10-PCS; 2018-04-13)
DX: I46.9 Cardiac arrest, cause unspecified (principal); I12.9 Hypertensive chronic kidney disease with stage 1 through stage 4 chronic kidney disease, or unspecified chronic kidney disease; E11.22 Type 2 diabetes mellitus with diabetic chronic kidney disease; N18.4 Chronic kidney disease, stage 4 (severe); Z79.84 Long term (current) use of oral hypoglycemic drugs; Z85.038 Personal history of other malignant neoplasm of large intestine; Z90.49 Acquired absence of other specified parts of digestive tract; Z87.442 Personal history of urinary calculi
CPT/HCPCS: 92950; 93307; 99285-25